=== PATIENT | female | born 1990 | race Caucasian/White ===

== ENCOUNTER 2025-02-18 19:55 | Emergency (ER) | payer SELFPAY ==
[2025-02-18 19:59] VITALS: BP 121/68; PULSE 83; RESP 20; TEMP 36.8; O2SAT 100
[2025-02-18 20:37] VITALS: BP 121/87; PULSE 78; PULSE 79; RESP 18; O2SAT 100; O2SAT 98
[2025-02-18 21:50] VITALS: BP 142/82
--- NOTE | 2025-02-18 21:59 | ECG_ITS ---
Test Date: 2025-02-18 22:13:43 Measurements Intervals [place] Rate: 76 P: 19 OK: 126 QRS: 36 QRSD: 90 T: -4 QT: 376 QTc: 423 Interpretive Statements SINUS RHYTHM NONSPECIFIC T-WAVE ABNORMALITY ABNORMAL ECG No previous ECG available for comparison Electronically Signed On 02-19-2025 06:51:34 CDT by Kyle Ansari M.D.
--- NOTE | 2025-02-18 22:15 | PC.NURSE ---
hearat tones were found in the lower right quadrant at 157.
--- NOTE | 2025-02-18 22:25 | ED_ITS ---
HPI - General Adult General Chief complaint: Unspecified Stated complaint: 14 wks preg-shocked with 120V, wants checked Time Seen by Provider: 02/18/25 22:22 History of Present Illness HPI narrative: This is a 34-year-old female presenting ED with chief complaint like fusion. Her dog chewed through a wire that were attached to some tach of lytes outside. She pressure wire a minor shock to her index finger on the left hand. She is very concerned because she has a high risk and after the shock she some chest tightness heaviness. She then called ambulance to be brought to the hospital. Symptoms have since resolved and she is now resting comfortably. She does not have any palpitations or loss of consciousness. She does not have any exit wounds or residual pain. Related Data Home Medications ?Medication ?Instructions ?Recorded ?Confirmed ?Last Taken ?Type aspirin .ROUTE 02/18/25 Unknown History labetalol 200 mg tablet 200 mg PO Q12H 02/18/25 02/18/25 Unknown History Allergies Allergy/AdvReac Type Severity Reaction Status Date / Time No Known Allergies Allergy Verified 02/18/25 20:42 Exam Narrative: APPEARANCE: No apparent distress. Head: atraumatic. EYES: EOMI, NOSE: Atraumatic NECK: Trachea midline RESPIRATORY: No increased rate of breathing CTAB CARDIOVASCULAR: RRR, no peripheral edema ABDOMINAL: Non-distended soft nontender MUSCULOSKELETAl: No obvious deformities NEURO: Alert. Moving 4/4 extremities SKIN:: Focal exam electrocution side revealed no superficial injury. No signs of exit wounds anywhere body. PSYCHIATRIC: Normal affect Course Vital Signs Vital signs: Vital Signs Temperature 98.2 F 02/18/25 19:59 Pulse Rate 83 02/18/25 19:59 Respiratory Rate 20 02/18/25 19:59 Blood Pressure 121/68 02/18/25 19:59 Pulse Oximetry 100 02/18/25 19:59 Oxygen Delivery Room Air 02/18/25 19:59 Temperature 98.2 F 02/18/25 19:59 Pulse Rate 78 02/18/25 20:37 Respiratory Rate 18 02/18/25 20:37 Blood Pressure 142/82 H 02/18/25 21:50 Pulse Oximetry 98 02/18/25 20:37 Oxygen Delivery Room Air 02/18/25 19:59 Medical Decision Making MDM Narrative Medical decision making narrative: -Course: 34-year-old female presenting after a minor electrocution. EKG is normal. heart tones are normal. Patient is asymptomatic. Patient was reassured and discharged with OBGYN follow-up Vital Signs Vital Signs: Vital Signs Temperature 98.2 F 02/18/25 19:59 Pulse Rate 83 02/18/25 19:59 Respiratory Rate 20 02/18/25 19:59 Blood Pressure 121/68 02/18/25 19:59 Pulse Oximetry 100 02/18/25 19:59 Oxygen Delivery Room Air 02/18/25 19:59 Temperature 98.2 F 02/18/25 19:59 Pulse Rate 78 02/18/25 20:37 Respiratory Rate 18 02/18/25 20:37 Blood Pressure 142/82 H 02/18/25 21:50 Pulse Oximetry 98 02/18/25 20:37 Oxygen Delivery Room Air 02/18/25 19:59 Discharge Plan Discharge Clinical Impression: Electrocution Patient Disposition: Home, Self-Care Condition: Stable Instructions: Antibiotic Form, Electrical [place] in Adults (ED) Additional Instructions: You were seen in emergency department after a minor shock. Your EKG was reassuring. Please follow-up with your OBGYN for further management. If you develop any new or worsening symptoms return to the ED. Patient Language: Belarusian Prescriptions: No Action aspirin [Adult Low Dose Aspirin] .ROUTE labetalol 200 mg tablet 200 mg PO Q12H Follow-up/Referrals: PHYSICIAN NOT ON STAFF,NONSTAFF [Non-Staff] -
--- OUTSIDE RECORDS SUMMARY | 2025-02-18 23:06 | XMS_ITS | Clinical Summary ---
Author Organization [facility] [place] Address [address] [place] [address] Care Team Providers Care Burlap Bag Sewer Name Role Phone Amparo Reina NP Primary Care Provider [phone] Allergies No known active allergies Medications buPROPion XL (WELLBUTRIN XL) 150 mg 24 hr tablet Take 1 tablet (150 mg total) by mouth every morning 90 tablet 4 07/12/20 24 025 Active labetaloL (NORMODYNE,TRANDAT E) 200 mg tablet Take 1 tablet (200 mg total) by mouth 2 (two) times a day 180 tablet 3 08/10/[address] (VOLTAREN) 75 mg EC tablet Take 1 tablet (75 mg total) by mouth 2 (two) times a day Take with food 60 tablet 08/16/20 24 Active Additional Information Patient not taking.Reported on 12/21/2024 ondansetron ODT (ZOFRAN-ODT) 4 mg disintegrating tabletIndications: Nausea Take 1 tablet (4 mg total) by mouth every 6 (six) hours as needed for nausea or vomiting 10 tablet 11/12/20 24 Active Additional Information Patient not taking.Reported on 12/21/2024 phentermine 37.5 mg capsule Take 1 capsule (37.5 mg total) by mouth every morning 30 capsule 2 11/09/20 24 025 Additional Information Patient not taking.Reported on 12/21/2024 Active Problems Problem Noted Date Diagnosed Date Lumbar pain 11/13/2024 Assessment & Plan (11/13/2024 7:37 AM STRIPER SPRAY GUN): Will start with x-ray of lumbar spine. Referral to physical therapy with added diagnosis of lumbar pain. Contusion of right thumb without damage to nail 11/13/2024 Assessment & Plan (11/13/2024 7:37 AM STRIPER SPRAY GUN): X-ray right thumb Right wrist pain 07/14/2024 Assessment & Plan (07/14/2024 8:53 AM CDT): Will order x-ray. Referral to sports Medicine Chronic right shoulder pain 07/14/2024 Assessment & Plan (07/14/2024 8:53 AM CDT): Will order x-ray. Referral to sports Medicine Hypertension, essential 12/16/2023 Assessment & Plan (11/09/2024 4:23 PM STRIPER SPRAY GUN): Blood pressure remains controlled on labetalol 200mg bid. Will continue current medications. Assessment & Plan (08/10/2024 4:02 PM CDT): Refilled labetalol, will continue with the plan for another child in the future. Assessment & Plan (08/10/2024 3:48 PM CDT): Will continue on labetalol. I do not think it is causing weight gain. She has not ruled out another Assessment & Plan (12/16/2023 11:55 AM [employer]IPER SPRAY GUN): Stable/ Improved. Blood pressure is adequately controlled on current medication. Will continue labetalol 200 mg b.i.d.. Blood pressure is well controlled on that so will continue. We will not make any medication changes today. Will have her follow-up in 6 months for continued monitoring and management Chronic left shoulder pain 12/16/2023 Assessment & Plan (12/16/2023 11:56 AM STR[employer]ER SPRAY GUN): Intermittent pain. Will refer to sports Medicine for evaluation H/O bilateral breast implants 12/16/2023 Assessment & Plan (12/16/2023 11:56 AM STRIPER SPRAY GUN): Has been told she needs 10 year MRI. Will refer to plastics for evaluation. Class 1 obesity due to exces s calories with serious comorbidity and body mass index (BMI) of 31.0 to 31.9 in adult 12/16/2023 Assessment & Plan (11/13/2024 7:35 AM STRIPER SPRAY GUN): We prescribed Phentermine continuation today. This medication may cause anxiety, dizziness, jitteriness, or insomnia. Pt has been tolerating it well and wants to continue medication in conjunction with diet and exercise plan. She is aware it could cause dependence if abused. She is to take it early in the day. Blood pressure has been monitored and is within normal limits. She is aware not to share medication with anyone else or combine with alcohol. I asked her to f/u in 3 months Assessment & Plan (08/10/2024 9:41 PM CDT): Lost 7lbs We prescribed Phentermine continuation today. This medication may cause anxiety, dizziness, jitteriness, or insomnia. Pt has been tolerating it well and wants to continue medication in conjunction with diet and exercise plan. She is aware it could cause dependence if abused. She is to take it early in the day. Blood pressure has been monitored and is within normal limits. She is aware not to share medication with anyone else or combine with alcohol. I asked her to f/u in 3 months Assessment & Plan (07/14/2024 8:53 AM CDT): I discussed the risks and benefits of starting phentermine for weight loss. I discussed the short-term use of 3-4 months of phentermine with patient. I discussed this is an aide to use in conjunction with diet changes and exercise. I discussed possible side effects. I will have patient follow-up in 1 month for recheck on blood pressure and weight patient was agreeable and voiced understanding of plan of care and follow-up Assessment & Plan (12/16/2023 11:57 AM STRIPER SPRAY GUN): Had some improvement with Contrave but then has been off of it for 2 months. She paid delcid for it. Discussed trying it again. Will start Contrave as directed. Will have her follow-up in 2 months for a weight check. If she has not having any improvement with diet and exercise and Contrave I told her we could discuss phentermine. We would have to monitor her heart rate and blood pressure more with phentermine. Patient voiced understanding of plan of care and follow-up Recurrent major depression 12/14/2023 Overview (07/12/2024): Sertraline - did not like it Assessment & Plan (11/09/2024 4:24 PM STRIPER SPRAY GUN): Having aches and pains - sometimes has difficulty sleeping. Has noticed a slight increase in anxiety with change to wellbutrin xl. Thinks she is doing okay. Assessment & Plan (08/10/2024 4:01 PM CDT): Doing well with the change to Wellbutrin and will continue. Assessment & Plan (07/12/2024 4:19 PM CDT): Concerned about weight gain with lexapro - will try changing to wellbutrin xl 150mg once daily Assessment & Plan (12/16/2023 11:58 AM STRIPER SPRAY GUN): Stable. Doing well with Lexapro 10 mg once daily. Will continue current medication have her follow-up in 6 months or as needed in interim if any problems or concerns S/P LASIK (laser assisted in situ keratomileusis ) 06/12/2023 Assessment & Plan (06/15/2023 4:22 PM CDT): Normal LASIK Good Vision Moxi/Pred QID unitl 7 days PO Art tears 2-4 times a day or PRN Return in [address] Valdovinos Assessment & Plan (06/12/2023 8:24 AM CDT): One day PO LASIK OU Normal flaps Good Vision Continue Moxifloxacin/Prednisilone Acetate 1% QID Continue Artificial Tears QID Return in 3-5 days Discussed post-operative activities Preeclampsia 08/25/2022 Resolved Problems Problem Noted Date Diagnosed Date Resolved Date Myopia of both eyes with astigmatism 05/31/2023 06/12/2023 Assessment & Plan (06/08/2023 4:18 PM CDT): Return for dilation and cycloplegic refraction before LASIK Surgery Rechecked manifest and cycloplegic refraction Reviewed LASIK risks Patient has no further questions LASIK OU +0.25 Goal OU Co-manage with Dr. Aruna Valdovinos to send last eye exam Post-ops with Dr. Valdovinos Assessment & Plan (05/31/2023 11:15 AM CDT): Referral from Dr. Valdovinos for LASIK surgery [employer] Good ocular health LASIK OU with femtosecond laser flap creation Discussed risks of LASIK surgery. Discussed risk of dryness, glare and halo and flap complications. Discussed risk of enhancement surgery and no guarantee of 20/20 vision. Discussed risk of keratectasia. Discussed presbyopia and need for reading glasses. I gave patient ample time to ask questions and reviewed all concerns. LASIK OU Co-manage with Dr. Valdovinos [place] Goal OU Patient requested to have eyes dilated at Dr. Valdovinos's office before surgery Encounters Date Type Department Care Team Description 12/21/2024 2:30 PM STRIPER SPRAY GUN Office Visit [facility] at [address] [address] Marizol Alfonso PA Acute bacterial conjunctivitis of right eye (Primary Dx) 12/07/2024 Telephone [facility] at [address] [address] Amparo Reina NP 11/27/2024 Telephone [facility] at [address] [address] Amparo Reina NP Xray results 11/23/2024 3:30 PM [employer] G[employer] Ancillary Procedure [facility] at [address] [address] Lumbar pain 11/23/2024 3:15 PM [employer]ER SPR[employer] Ancillary Procedure [facility] at [address] [address] Contusion of right thumb without damage to nail, initial encounter from Last 3 Months Immunizations Immunization Administration Dates Next Due DTaP 07/11/1996, 3,02/03/1992,10/28,1991 Hep B Vaccine 09/06/2017 Hep B, Adolescent or Pediatric 03/01/2001,1999,08/24/2000 HiB 09/28/1992, 2,1991,08/19 Hib (HbO) 09/28/1992, 2,1991,08/19 Influenza, Quadrivalent, Diandra l Culture-based MDCK, Preservative Free, Antibiotic Free, Intramuscular 09/01/2023,08/14/2022,08/04/2017 Influenza, Quadrivalent, Spl it, Preservative Free, Intramuscular 07/27/2018 Influenza, Trivalent, Cell Culture-based MDCK, Preservative Free, Antibiotic Free, Intramuscular 08/12/2024,08/04/2017 Influenza, Trivalent, IM (MDV) 08/18/2021 Influenza, Unspecified 08/10/2024(Deferr ed: Patient Refused),09/01/2023,07/27/2018 MMR 07/11/1996,09/28/1992 OPV 07/11/1996, 3,1991,08/19 OPV, Unspecified 07/11/1996, 3,1991,08/19 PPD TEST 06/13/2024 Tdap 08/26/2022 Surgical History Surgery Date Site/Laterality Comments WISDOM TOOTH EXTRACTION LIPOMA RESECTION BREAST RECONSTRUCTION LASIK Medical History Medical History Date Comments Hypertension Family History Medical History Relation Name Comments Arthritis Father Hyperlipidemia Father Anxiety disorder Mother Basal cell carcinoma Mother Depression Mother Hypertension Mother Macular degeneration Mother Arthritis Other Relation Name Status Comments Father Alive Half-Sister Alive Mother Other Social History Tobacco Use Types Packs/Day Years Used Date Smoking Tobacco: Never Smokeless Tobacco: Never Tobacco Cessation:Counseling Given: Not Answered PHQ-2 Answer Date Recorded PHQ-2 Total Score (If total score is 3 or more points, staff should administer the PHQ-9) 0 08/10/2024 Comments Unknown Sex and Gender Information Value Date Recorded Sex Assigned at Not on file Legal Sex Female 9:59 AM STRIPER SPRAY G[employer] Gender Identity Not on file Sexual Orientation Not on file Obstetrics History Last Filed Vital Signs Vital Sign Reading Time Taken Comments Blood Pressure 116/68 12/21/2024 2:21 PM [employer]ER [employer]AY G[employer] Pulse 87 12/21/2024 2:21 PM [employer]ER [employer] G[employer] Temperature 36.7 C (98.1 F) 12/21/2024 2:21 PM [employer]ER [employer]AY GUN Respiratory Rate 24 12/21/2024 2:21 PM STRIPER SPRAY GUN Oxygen Saturation 98% 12/21/2024 2:21 PM STRIPER SPRAY GUN Inhaled Oxygen Concentration - - Weight 83.9 kg (185 lb) 11/12/2024 11:51 AM STRIPER SPRAY GUN Height 165.1 cm (5' 5 ) 11/12/2024 11:51 AM [employer]IPER SPRAY GUN Body Mass Index 30.79 11/12/2024 11:51 AM STRIPER SPRAY GUN Plan of Treatment Health Maintenance Due Date Last Done Comments Cervical Cancer Screening 1991 Hepatitis C Screening 1991 Varicella Vaccines (1 of 2 - 13+ 2-dose series) 2004 Regular Well Visit/Exam 18-64 2009 Depression Screening 08/10/2025 08/10/2024, 12/14/19 24 DTaP/Tdap/Td Vaccine (7 - Td or Tdap) 08/26/2032 08/26/2022, 07/11/1996, 01/06/1993, Additional history exists Hepatitis B Screening Completed 09/06/2017 , 03/01/2001, 10/05/2000, Additional history exists Covid-19 Vaccine Completed 08/12/2024, 09/2023, 09/01/2022, Additional history exists Influenza Vaccine Completed 08/12/2024, , 09/01/2023, Additional history exists HPV Vaccines Aged Out No longer eligi ble based on patient's age to complete this topic Pneumococcal vaccine <65 Aged Out No longer eligible based on patient's age to complete this topic Procedures Procedure Name Priority Date/Time Associated Diagnosis Comments XR FINGER THUMB RIGHT Schedule Routine, Read Routine (OP Routine) 11/23/2024 3:09 PM STRIPER SPRAY G[employer] Contusion of right thumb without damage to nail, initial encounter XR SPINE LUMBAR 2 OR 3 VIEWS Schedule Routine, Read Routine (OP Routine) 11/23/2024 3:09 PM [employer]IPER SPRAY G[employer] Lumbar pain from Last 3 Months Results * XR Finger Thumb Right Minimum 2 Views (11/23/2024 3:09 PM STRIPER SPRAY GUN) Anatomical Region Laterality Modality Upper Extremities, Hand, Fingers Right Digital Radiography 11/24/2024 5:07 PM [employer]AY G[employer] Narrative 11/24/2024 5:10 PM [employer]IPER SPRAY G[employer] EXAM DESCRIPTION: XR FINGER THUMB RIGHT MINIMUM 2 VIEWS; XR SPINE LUMBAR 2 OR 3 VIEWS REASON FOR STUDY: right thumb injury Pt complains of soft tissue pain between right thumb and 2nd metatarsal after smashing it a couple of weeks ago ; low back pain Pt complains of chronic lower back pain. No recent injury. No prior surgery to the lower spine. FINDINGS: Two views lumbar spine and three views right thumb submitted without comparison. Right thumb: No acute fractures are identified. Ulnar negative variance is present. The joint spaces are normal. Lumbar spine: No acute fractures are identified. There is mild retrolisthesis of L5 on S1. The intervertebral disc space heights are normal. IMPRESSION: No acute fracture. Mild retrolisthesis of L5 on S1. THIS IS AN ELECTRONICALLY VERIFIED FINAL REPORT 11/24/2024 5:10 PM - Electronically signed by Toney Kitchen M.D. T: Report ID: [id number] Reading Location: [id number] Procedure Note Toney Kitchen MD - 11/24/2024 EXAM DESCRIPTION: XR FINGER THUMB RIGHT MINIMUM 2 VIEWS; XR SPINE LUMBAR 2 OR 3 VIEWS REASON FOR STUDY: right thumb injury Pt complains of soft tissue pain between right thumb and 2nd metatarsalafter smashing it a couple of weeks ago ; low back pain Pt complains of chronic lower back pain. No recent injury. No priorsurgery to the lower spine. FINDINGS: Two views lumbar spine and three views right thumb submittedwithout comparison. Right thumb: No acute fractures are identified. Ulnar negative variance is present.The joint spaces are normal. Lumbar spine: No acute fractures are identified. There is mild retrolisthesis of L5 onS1. The intervertebral disc space heights are normal. IMPRESSION: No acute fracture. Mild retrolisthesis of L5 on S1. THIS IS AN ELECTRONICALLY VERIFIED FINAL REPORT 11/24/2024 5:10 PM - Electronically signed by Toney Kitchen M.D. T: Report ID: [id number] Reading Location: [place] [address] Amparo Reina WHITE [employer] SUPERVISOR IMG XR PROCEDURES Final Resul t * XR Spine Lumbar 2 or 3 Views (11/23/2024 3:09 PM STRIPER SPRAY G[employer]) Anatomical Region Laterality Modality Spine N/A Digital Radiogra phy 11/24/2024 5:07 PM [employer] Narrative 11/24/2024 5:10 PM [employer]IPER SPRAY [employer] EXAM DESCRIPTION: XR FINGER THUMB RIGHT MINIMUM 2 VIEWS; XR SPINE LUMBAR 2 OR 3 VIEWS REASON FOR STUDY: right thumb injury Pt complains of soft tissue pain between right thumb and 2nd metatarsal after smashing it a couple of weeks ago ; low back pain Pt complains of chronic lower back pain. No recent injury. No prior surgery to the lower spine. FINDINGS: Two views lumbar spine and three views right thumb submitted without comparison. Right thumb: No acute fractures are identified. Ulnar negative variance is present. The joint spaces are normal. Lumbar spine: No acute fractures are identified. There is mild retrolisthesis of L5 on S1. The intervertebral disc space heights are normal. IMPRESSION: No acute fracture. Mild retrolisthesis of L5 on S1. THIS IS AN ELECTRONICALLY VERIFIED FINAL REPORT 11/24/2024 5:10 PM - Electronically signed by Toney Kitchen M.D. T: Report ID: [id number] Reading Location: [id number] Procedure Note Toney Kitchen MD - 11/24/2024 EXAM DESCRIPTION: XR FINGER THUMB RIGHT MINIMUM 2 VIEWS; XR SPINE LUMBAR 2 OR 3 VIEWS REASON FOR STUDY: right thumb injury Pt complains of soft tissue pain between right thumb and 2nd metatarsalafter smashing it a couple of weeks ago ; low back pain Pt complains of chronic lower back pain. No recent injury. No priorsurgery to the lower spine. FINDINGS: Two views lumbar spine and three views right thumb submittedwithout comparison. Right thumb: No acute fractures are identified. Ulnar negative variance is present.The joint spaces are normal. Lumbar spine: No acute fractures are identified. There is mild retrolisthesis of L5 onS1. The intervertebral disc space heights are normal. IMPRESSION: No acute fracture. Mild retrolisthesis of L5 on S1. THIS IS AN ELECTRONICALLY VERIFIED FINAL REPORT 11/24/2024 5:10 PM - Electronically signed by Toney Kitchen M.D. T: Report ID: [id number] Reading Location: [place] [address] Amparo Reina NP IMG XR PROCEDURES Final Resul t from Last 3 Months Insurance [facility] [employer] Address: [facility] [address] [place] [address] [employer] Address: [address] [place] [address] Care Teams Burlap Bag Sewer Relationship Specialty Start Date End Date Amparo Reina NP PCP - General Family Medicine 12/14/23
--- OUTSIDE RECORDS SUMMARY | 2025-02-18 23:06 | XMS_ITS | Continuity of Care Document ---
Author Organization [facility] Address [address] [place] [address] Phone Care Team Providers Care Advertising Editor Name Role Phone Sebas Fitzpatrick PT Unavailable [...] Diagnoses Date Provider Providers Copied on Encounter [address], [place], [place], [id number], tel:[phone] [facility] No Information Amari Mullen. . Referring Provider: Amparo Reina, [address], [place], [address]. tel:[phone] [address], [place], [place], [id number], [place] tel:[phone] [place] No Information Amari Sebas. . Referring Provider: Amparo Reina, [address], [place], [address]. tel:[phone] [facility], [address] [facility], [place], [place], [id number], [place] tel:[phone] [place] No Information Amari Sebas. . Referring Provider: Earlene Castanon, [address], [place], [address]. tel:[phone] [facility], [address] [facility] [facility], [place], [place], [id number], tel:[phone] [place] No Information Amari Sebas. . Referring Provider: Earlene Castanon, [address], [place], [address]. tel:[phone] [facility], [address], [place], [place], [id number], [place] tel:[phone] [place] No Information Amari Sebas. . Referring Provider: Earlene Castanon [address], [place], [address]. tel:[phone] [facility] [address] [facility], [place], [place], [id number], [place] tel:[phone] [place] No Information Amari Sebas. . Referring Provider: Earlene Castanon [address], [place], [address]. tel:[phone] [facility], [place], [place], [id number], [place] tel:[phone] [place] No Information Amari Sebas. . Referring Provider: Earlene Castanon [address], [place], [address]. tel:[phone] [address], [place], [place], [id number], tel:[phone] [facility] No Information Amari So . Referring Provider: Earlene Castanon [address], [place], [address]. tel:[phone], [place], [place], [id number], tel:[phone] [facility] No Information Amari So . Referring Provider: Earlene Castanon [address], [place], [address]. tel:[phone], [place], [place], [id number], tel:[phone] [facility] No Information Amari So . Referring Provider: Earlene Castanon [address], [place], [address]. tel:[phone] Family History Family Member Type Diagnosis Age At Onset No Information Payers Payer name Insurance type Covered democrat ID Authormilli patrickcurtis(s) [facility] [id number] Social History Type Description Quantity Date Captured [...]
--- OUTSIDE RECORDS SUMMARY | 2025-02-18 23:06 | XMS_ITS | Clinical Summary ---
Author Organization [facility] Address [facility] [place] [address] Care Team Providers Care Continuity Director Name Role Phone Amparo Reina [facility] Primary Care Provider [phone]- [phone] Allergies No known active allergies Medications escitalopram (LEXAPRO) 10 MG tablet Take 10 mg by mouth daily. Active labetalol (NORMODYNE) 200 MG tablet Take 200 mg by mouth 2 (two) times daily. Active Multiple Vitamin (MULTIVITAMIN ADULT) Tab Active Active Problems Problem Noted Date Diagnosed Date Preeclampsia (HHS/HCC) 08/25/2022 Comments Yes Encounters Date Type Department Care Team Description 01/16/2025 1:52 AM CRATE REPAIRER - 01/16/2025 5:33 AM [facility] Emergency [facility] Emergency Room [address] [place] [address] Donny Bingham MD Vaginal Bleeding Discharge Disposition: Home or Self Care (Routine Discharge) 01/16/2025 Travel 12/27/2024 1:00 PM CRATE REPAIRER - 12/27/2024 11:59 PM [facility] Hospital Encounter [facility] Laboratory [address] [place] [address] None, Provider, Ángela Oliver CNM Discharge Disposition: Home or Self Care (Routine Discharge) 12/26/2024 10:17 PM CRATE REPAIRER - 12/26/2024 11:53 PM [facility] Emergency [facility] Emergency Room [address] [place], [place] [id number] Gibson Lee MD Vaginal Bleeding Discharge Disposition: Home or Self Care (Routine Discharge) 12/26/2024 Travel 12/26/2024 Orders Only [facility] [address] [place] [address] Ángela Arambula CNM from Last 3 Months Immunizations Name Administration Dates Next Due Dtap 07/11/1996, 3,02/03/1992, 991,1991 Flucelvax 6 Months+ (Prefill ed Syringe) 08/04/2017 Hepatitis B (Generic: Adult) 09/06/2017 Hepatitis B Pediatric 03/01/2001,10/05/2000,01/2000 Hib 09/28/1992, 2,1991, 991 Influenza Adult (Generic) 07/27/2018 MMR 07/11/1996,09/28/1992 Opv 07/11/1996, 3,1991, 991 Family History Medical History Relation Comments Hyperlipidemia Father Hypertension Father borderline DM Father Heart Maternal Grandfather Heart Attack Maternal Grandfather Cancer Maternal Grandmother lung cancer Cancer Mother corticobasal syn drome Hypertension Mother Diabetes Paternal Grandfather CHF Paternal Grandmother Rheumatoid Arthritis Paternal Grandmother Anxiety Sister Relation Status Comments Father Alive Maternal Grandfather Maternal Grandmother Mother Alive Paternal Grandfather Paternal Grandmother Sister Alive Social History Tobacco Use Types Packs/Day Years Used Date Smoking Tobacco: Never Smokeless Tobacco: Never Tobacco Cessation:Counseling Given: Not Answered Alcohol Use Standard Drinks/Week Comments Not Currently 0 (1 standard drink = 0.6 oz pur e alcohol) rarely Humiliation, Afraid, Rape, and Kick questionnair e Answer Date Recorded Within the last year, have y ou been afraid of your partner or ex-partner? No 08/25/2022 Within the last year, have y ou been humiliated or emotionally abused in other ways by your partner or ex-partner? No Within the last year, have y ou been kicked, hit, slapped, or otherwise physically hurt by your partner or ex-partner? No 08/25/2022 Within the last year, have y ou been raped or forced to have any kind of sexual activity by your partner or ex-partner? No 08/25/2022 Social Connection and Isolat ion Panel [NHANES] Answer Date Recorded In a typical week, how many times do you talk on the phone with family, friends, or neighbors? Three times a week 08/25/2022 How often do you get togethe r with friends or relatives? Twice a week 08/25/2022 How often do you attend [facility] or congregation services? More than 4 times per year 08/25/2022 Do you belong to any clubs o r organizations such as spiritism groups, unions, fraternal or athletic groups, or school groups? No 08/25/2022 How often do you attend meet ings of the clubs or organizations you belong to? Never 08/25/2022 Are you , , di vorced, , never , or living with a partner? 08/25/2022 AUDIT-C Answer Date Recorded Q1: How often do you have a drink containing alcohol? Never 08/25/2022 Q2: How many drinks containi ng alcohol do you have on a typical day when you are drinking? Patient does not drink Q3: How often do you have si x or more drinks on one occasion? Never 08/25/2022 Overall Financial Resource Strain (CARDIA) Answe r Date Recorded How hard is it for you to pa y for the very basics like food, housing, medical care, and heating? Not very hard 08/25/2022 PHQ-2 Answer Date Recorded PHQ-2 Score - If the patient scores above 3, please move on to questions 3-9 2 03/26/2021 [facility] - Occupational Stress Questionnaire Answer Date Recorded Do you feel stress - tense, restless, nervous, or anxious, or unable to sleep at night because your mind is troubled all the time - these days? To some extent 08/25/2022 Exercise Vital Sign Answer Date Recorde d On average, how many days pe r week do you engage in moderate to strenuous exercise (like a brisk walk)? 4 days 08/25/2022 On average, how many minutes do you engage in exercise at this level? 120 min 08/25/2022 Hunger Vital Sign Answer Date Recorded Within the past 12 months, y ou worried that your food would run out before you got the money to buy more. Sometimes true Within the past 12 months, t he food you bought just didn't last and you didn't have money to get more. Sometimes true 02/2022 PRAPARE - Transportation Answer Date Re corded In the past 12 months, has l ack of transportation kept you from medical appointments or from getting medications? No 02/2022 In the past 12 months, has l ack of transportation kept you from meetings, work, or from getting things needed for daily living? No 08/25/2022 Housing Stability Vital Sign Answer Andrei e Recorded In the last 12 months, was t here a time when you were not able to pay the mortgage or rent on time? Yes 08/25/2022 In the last 12 months, how many places have you lived? 1 08/25/2022 In the last 12 months, was t here a time when you did not have a steady place to sleep or slept in a residential (including now)? No 08/25/2022 Comments Yes Sex and Gender Information Value Date Recorded Sex Assigned at Female 12/26/2024 9:46 PM CRATE REPAIRER Legal Sex Female 8:58 PM CDT Gender Identity Not on file Sexual Orientation Not on file Last Filed Vital Signs Vital Sign Reading Time Taken Comments Blood Pressure 134/82 01/16/2025 2:02 AM CRATE REPAIRER Pulse 87 01/16/2025 2:02 AM CRATE REPAIRER Temperature 36.5 C (97.7 F) 01/16/2025 2:02 AM CRATE REPAIRER Respiratory Rate 18 01/16/2025 2:02 AM CRATE REPAIRER Oxygen Saturation 100% 01/16/2025 2:02 AM CRATE REPAIRER Inhaled Oxygen Concentration - - Weight 82.6 kg (182 lb 1.6 oz) 01/16/2025 2:02 A M CRATE REPAIRER Height 165.1 cm (5' 5 ) 01/16/2025 2:02 AM CRATE REPAIRER Body Mass Index 30.3 01/16/2025 2:02 AM CRATE REPAIRER Plan of Treatment Health Maintenance Due Date Last Done Comments Cervical Cancer Screening Pap Smear (Age 30 to 64) Every 3 Years 1991 Annual Physical 1994 Hepatitis C 2009 Cervical Cancer Screening Pap with HPV Testing (Age 30 to 64) Every 5 Years 2021 Cervical Cancer Screening with HPV 2021 COVID-19 Vaccine (2023- season) 2024 DTaP, Tdap and Td Vaccines (7 - Td or Tdap) 08/26/2032 08/26/2022, 07/11/1996, 01/06/1993, Additional history exists RSV Immunization or 60+ Years (1 - 1-dose 75+ series) 2066 Hepatitis B Vaccines Completed 09/06/2017, 03/01/2001, 10/05/2000, Additional history exists HPV Vaccines Aged Out No longer eligi ble based on patient's age to complete this topic Meningococcal B Vaccine Aged Out No l onger eligible based on patient's age to complete this topic Meningococcal Vaccine Aged Out No veronica richard eligible based on patient's age to complete this topic Pneumococcal Vaccine: Pediatrics (0 to 5 Years) and At-Risk Patients (6 to 64 Years) Aged Out No longer eligible based on patient's age to complete this topic RSV Immunizations Under 20 Months Aged Out No longer eligible based on patient's age to complete this topic Procedures Procedure Name Priority Date/Time Associated Diagnosis Comments US OB <14WKS TA STAT 01/16/2025 5:08 AM CRATE REPAIRER HCG QUANT (SERUM)-CHORIONIC GONADOTROPIN STAT 01/16/2025 2:00 AM CRATE REPAIRER HC URINALYSIS AUTO W/O MICRO STAT 01/16/2025 2:00 AM CRATE REPAIRER COMPREHENSIVE METABOLIC PANEL STAT 01/16/2025 2:00 AM CRATE REPAIRER CBC W/DIFF AUTOMATED STAT 01/16/2025 2:00 AM CRATE REPAIRER HCG QUANT (SERUM)-CHORIONIC GONADOTROPIN Routine 12/27/2024 1:05 PM CRATE REPAIRER Absence of menstruation TEST URINE STAT 12/26/2024 10:30 PM CRATE REPAIRER URINALYSIS, AUTO, COMPLETE STAT 12/26/2024 10:30 PM CRATE REPAIRER HCG QUANT (SERUM)-CHORIONIC GONADOTROPIN STAT 12/26/2024 10:30 PM CRATE REPAIRER COMPREHENSIVE METABOLIC PANEL STAT 12/26/2024 10:30 PM CRATE REPAIRER CBC W/DIFF AUTOMATED STAT 12/26/2024 10:30 PM CRATE REPAIRER from Last 3 Months Results * US OB <14WKS TA (01/16/2025 5:08 AM CRATE REPAIRER) Anatomical Region Laterality Modality Abdomen Ultrasound 01/16/2025 5:13 AM CRATE REPAIRER Impressions 01/16/2025 5:18 AM CRATE REPAIRER IMPRESSION: 1. Single viable intrauterine with heart rate of 164 bpm. 2. Fetus is estimated as 9 weeks 2 days with HERBER 08/19/2025 +/- 2 weeks. This correlates fairly well with dates obtained from the LMP. 3. No subchorionic hemorrhage. Unremarkable ovaries. No free fluid in the cul-de-sac. Referred By: Interpreted By: Marie Huynh MD, 01/16/2025 5:13 AM Narrative 01/16/2025 5:18 [place] [address] EXAM: US OB <14WKS TA CLINICAL INFORMATION: 9 weeks estimated gestational age, vaginal bleeding. LMP 11/09/2024 with fetus weight is 9 weeks 5 days with HERBER 08/16/2025.. Beta hCG level of alexx and 41,000 241 on 01/16/2025. G4, P3. TECHNIQUE: Multiple transabdominal sonographic images of the OB pelvis were obtained. COMPARISON: None pertaining to this . FINDINGS: ? The uterus measures 12.5 x 6.8 x 9 cm with myeloma 398.2 mL. There is a single viable intrauterine with heart rate of 164 bpm. Bedford-rump measurements 2.59 cm corresponding to a 9 week 2 day with HERBER 08/19/2025 +/- 2 weeks, which correlates well with dates obtained from the LMP. No subchorionic hemorrhage is seen. Yolk sac is seen. Subjectively normal quantity of amniotic fluid is seen. ? The right ovary measures 2.7 x 1.8 1.8 cm with volume of 4.7 mL. The left ovary measures 4.3 x 1.9 x 2.7 cm with volume of 11.3 mL. Appropriate color and Doppler blood flow is seen in the ovaries with no evidence of ovarian torsion. Small subcentimeter physiologic follicles are seen in both ovaries with no suspicious ovarian or adnexal mass. No free fluid is seen in the cul-de-sac. ? Procedure Note Marie Huynh MD - 01/16/2025 [facility] [address] [place] [address] EXAM: US OB <14WKS TA CLINICAL INFORMATION: 9 weeks estimated gestational age, vaginalbleeding. LMP 11/09/2024 with fetus weight is 9 weeks 5 days with EDD08/16/2025.. Beta hCG level of alexx and 41,000 241 on 01/16/2025. G4,P3. TECHNIQUE: Multiple transabdominal sonographic images of the OB pelviswere obtained. COMPARISON: None pertaining to this . FINDINGS: ? The uterus measures 12.5 x 6.8 x 9 cm with myeloma 398.2 mL. There is asingle viable intrauterine with heart rate of 164 bpm.Bedford-rump measurements 2.59 cm corresponding to a 9 week 2 day pregnancywith HERBER 08/19/2025 +/- 2 weeks, which correlates well with dates obtainedfrom the LMP. No subchorionic hemorrhage is seen. Yolk sac is seen.Subjectively normal quantity of amniotic fluid is seen. ? The right ovary measures 2.7 x 1.8 1.8 cm with volume of 4.7 mL. The leftovary measures 4.3 x 1.9 x 2.7 cm with volume of 11.3 mL. Appropriatecolor and Doppler blood flow is seen in the ovaries with no evidence ofovarian torsion. Small subcentimeter physiologic follicles are seen inboth ovaries with no suspicious ovarian or adnexal mass. No free fluid isseen in the cul-de-sac. ? IMPRESSION: 1. Single viable intrauterine with heart rate of 164bpm. 2. Fetus is estimated as 9 weeks 2 days with HERBER 08/19/2025 +/- 2 weeks.This correlates fairly well with dates obtained from the LMP. 3. No subchorionic hemorrhage. Unremarkable ovaries. No free fluid inthe cul-de-sac. Referred By: Interpreted By: Marie Huynh MD, 01/16/2025 5:13 AM us Donny Bingham MD ULTRASOUND Final Resu lt * (ABNORMAL) URINALYSIS (01/16/2025 2:00 AM CRATE REPAIRER) COLOR (U) LIGHT YELLOW 01/16/2025 3:03 AM [facility] TRANSPARENCY CLEAR 01/16/2025 3:03 AM [facility] SPECIFIC GRAVITY (U) 1.015 1.002 - 1.030 01/16/2025 3:03 AM [facility] U PH 6.0 4.5 - 8.0 01/16/2025 3:03 AM [facility] LEUKOCYTES (U) NEGATIVE NEGATIVE 01/16/2025 3:03 AM [facility] NITRITES NEGATIVE NEGATIVE 01/16/2025 3:03 AM [facility] PROTEIN RANDOM (U) 1+(A) NEGATIVE 01/16/2025 3:03 AM [facility] GLUCOSE (U) NEGATIVE NEGATIVE 01/16/2025 3:03 AM [facility] KETONES MG/DL (U) NEGATIVE NEGATIVE 01/16/2025 3:03 AM [facility] UROBILINOGEN NORMAL NORMAL EU/DL 01/16/2025 3:03 AM [facility] BILIRUBIN (U) NEGATIVE NEGATIVE 01/16/2025 3:03 AM [facility] BLOOD (U) 4+(A) NEGATIVE 01/16/2025 3:03 AM [facility] WBC/HPF OCCASIONAL /HPF 01/16/2025 3:03 AM [facility] RBC/HPF 0-2 /HPF 01/16/2025 3:03 AM [facility] EPI/HPF 0-5 /HPF 01/16/2025 3:03 AM [facility] URINE SPECIMEN OBTAINED BY CLEAN CATCH PROCEDURE / Unknown 01/16/2025 2:00 AM CRATE REPAIRER us Donny Bingham MD URINE ORDERABLES Final Res ult [facility] [address] [place] [id number], [place] [phone] * (ABNORMAL) COMPREHENSIVE METABOLIC PANEL (01/16/2025 2:00 AM CRATE REPAIRER) Only the most recent of2 resultswithin the time period is included. GLUCOSE 89 70 - 99 MG/DL 01/16/2025 3:46 AM [facility] BUN 12 7 - 18 MG/DL 01/16/2025 3:46 AM [facility] CREATININE S/P/B 0.80 0.55 - 1.02 MG/DL 01/16/2025 3:46 AM [facility] SODIUM S/P/B 139 136 - 145 MMOL/L 01/16/2025 3:46 AM [facility] POTASSIUM S/P/B 3.6 3.5 - 5.1 MMOL/L 01/16/2025 3:46 AM [facility] CHLORIDE S/P/B 104 100 - 108 MMOL/L 01/16/2025 3:46 AM [facility] CO2 23.4 21 - 32 MMOL/L 01/16/2025 3:46 AM [facility] CALCIUM S/P/B 9.1 8.5 - 10.1 MG/DL 01/16/2025 3:46 AM [facility] BILIRUBIN TOTAL S/P/B 0.2 0.2 - 1.2 MG/DL 01/16/2025 3:46 AM [facility] Comment: THIS ASSAY IS NOT RECOMMENDED FOR PATIENTS UNDERGOING TREATMENT WITH ELTROMBOPAG DUE TO THE POTENTIAL FOR FALSELY ELEVATED RESULTS. TOTAL PROTEIN S/P/B 6.8 6.4 - 8.2 G/DL 01/16/2025 3:46 AM [facility] ALBUMIN S/P/B 3.3(L) 3.4 - 5.0 G/DL 01/16/2025 3:46 AM [facility] AST 26 15 - 37 U/L 01/16/2025 3:46 AM [facility] ALT 55 14 - 55 U/L 01/16/2025 3:46 AM [facility] ALKALINE PHOSPHATASE S/P/B 77 50 - 136 U/L 01/16/2025 3:46 AM [facility] ANION GAP 11.6 5 - 15 MMOL/L 01/16/2025 3:46 AM [facility] BUN CREATININE RATIO 15.0 6 - 26 01/16/2025 3:46 AM [facility] A/G RATIO 0.9(L) 1.0 - 2.0 RATIO 01/16/2025 3:46 AM [facility] GFR ESTIMATE >90 >90 ML/MIN/1.7 3 M2 01/16/2025 3:46 AM [facility] Comment: NOTE: eGFR is not calculated for patients <18 years of age or gender unknown. This is an estimated GFR calculation using the new CKD EPI creatinine equation without race and so does not require a correction factor for race. This estimated GFR should not be used for calculating drug doses. 01/16/2025 2:00 AM CRATE REPAIRER us Donny Bingham MD LABORATORY Final Resu lt Performing Organization Address [facility] Co de Phone Number [facility] [address] [place] [address], [place] [phone] * Quantitative HCG (01/16/2025 2:00 AM CRATE REPAIRER) Only the most recent of3 resultswithin the time period is included. HCG QUANTITATIVE 141,241 MIU/ML 01/16/20 3:51 AM CRATE REPAIRER [facility] Comment: WEEKS OF REFERENCE RANGES NON- FEMALE 0-6 0.2 - 1 5 - 50 1 - 2 50 - 500 2 - 3 100 - 5000 3 - 4 500 - 10,000 4 - 5 1000 - 50,000 5 - 6 10,000 - 100,000 6 - 8 15,000 - 200,000 2 - 3 MONTHS 10,000 - 100,000 01/16/2025 2:00 AM CRATE REPAIRER Donny Bnigham MD LABORATORY Final Resu lt Performing Organization Address [facility] Co de Phone Number [facility] [address] [place] [address], [place] [phone] * (ABNORMAL) CBC W/DIFF AUTOMATED (01/16/2025 2:00 AM CRATE REPAIRER) Only the most recent of2 resultswithin the time period is included. WBC 9.72 4.50 - 11.00 x10'3/uL 01/16/2025 2:19 AM CRATE REPAIRER [facility] RBC 4.04(L) 4.20 - 5.40 x10'6/uL 01/16/2025 2:19 AM [facility] HGB 12.1 12.0 - 16.0 G/DL 01/16/2025 2:19 AM [facility] HCT 35.9(L) 38.0 - 48.0 % 01/16/2025 2:19 AM [facility] MCV 88.9 81.0 - 99.0 FL 01/16/2025 2:19 AM [facility] MCH 30.0 27.0 - 31.0 PG 01/16/2025 2:19 AM [facility] MCHC 33.7 32.0 - 36.0 G/DL 01/16/2025 2:19 AM [facility] RDW 13.5 11.5 - 14.5 % 01/16/2025 2:19 AM [facility] PLT 207 130 - 400 x10'3/uL 01/16/2025 2:19 AM [facility] MPV 10.5 9.3 - 12.2 FL 01/16/2025 2:19 AM [facility] CBC COMMENT AUTOMATED RBC MORPHOLOGY AND PLATELET EVALUATION NORMAL 01/16/2025 2:19 AM [facility] NEUTROPHILS % 70.9 % 01/16/2025 2:19 AM [facility] LYMPHOCYTES % 18.7 % 01/16/2025 2:19 AM [facility] MONOCYTES % 6.2 % 01/16/2025 2:19 AM [facility] EOSINOPHILS 3.5 % 01/16/2025 2:19 AM [facility] BASOPHILS 0.4 % 01/16/2025 2:19 AM [facility] IMMATURE GRANS % 0.3 % 01/16/20 2:19 AM [facility] NRBC % 0.0 % 01/16/2025 2:19 AM [facility] ABS. NEUTROPHILS TOTAL 6.89 1.80 - 7.70 x10'3/uL 01/16/2025 2:19 AM [facility] ABS. LYMPHOCYTES 1.82 1.00 - 4.80 x10'3/uL 01/16/2025 2:19 AM [facility] ABS. MONOCYTES 0.60 0.24 - 0.86 x10'3/uL 01/16/2025 2:19 AM [facility] ABS. EOSINOPHILS 0.34 0.04 - 0.36 x10'3/uL 01/16/2025 2:19 AM [facility] ABS. BASOPHILS 0.04 0.01 - 0.08 x10'3/uL 01/16/2025 2:19 AM [facility] ABS. IMMATURE GRANULOCYTES 0.03 0.00 - 0.49 x10'3/uL 01/16/2025 2:19 AM [facility] ABS. NUCLEATED RBC'S 0.00 0.00 - 0.01 x10'3/uL 01/16/2025 2:19 AM [facility] 01/16/2025 2:00 AM CRATE REPAIRER us Donny Bingham MD LABORATORY Final Resu lt [facility] [address] [place] [address], * (ABNORMAL) TEST URINE (12/26/2024 10:30 PM CRATE REPAIRER) URINE HCG TEST POSITIVE( A) NEGATIVE 12/26/2024 10:44 PM [facility] Comment: VERY DILUTE URINE SPECIMENS MAY NOT CONTAIN COMMERCIAL REPORTER LEVELS OF HCG. IF IS STILL SUSPECTED, A SERUM HCG TEST IS RECOMMENDED. URINE SPECIMEN FROM [facility]RETHRA / Unknown 12/26/2024 10:30 PM CRATE REPAIRER us Gibson Lee MD URINE ORDERABLES Final Resu lt [facility] [address] [place] [address], [place] [phone] * (ABNORMAL) URINALYSIS, AUTO, COMPLETE (12/26/2024 10:30 PM CRATE REPAIRER) COLOR (U) YELLOW 12/26/2024 10:51 PM [facility] TRANSPARENCY CLEAR 12/26/2024 10:51 PM [facility] SPECIFIC GRAVITY (U) 1.025 1.000 - 1.030 12/26/2024 10:51 PM [facility] U PH 6.0 5.0 - 9.0 12/26/2024 10:51 PM [facility] LEUKOCYTES (U) NEGATIVE NEGATIVE 12/26/2024 10:51 PM [facility] NITRITES NEGATIVE NEGATIVE 12/26/2024 10:51 PM [facility] PROTEIN RANDOM (U) NEGATIVE NEGATIVE 12/26/2024 10:51 PM [facility] GLUCOSE (U) NEGATIVE NEGATIVE 12/26/2024 10:51 PM [facility] KETONES MG/DL (U) NEGATIVE NEGATIVE 12/26/2024 10:51 PM [facility] BILIRUBIN (U) NEGATIVE NEGATIVE 12/26/2024 10:51 PM [facility] BLOOD (U) 3+(A) NEGATIVE 12/26/2024 10:51 PM CRATE REPAIRER [facility] WBC/HPF 0-5 0 - 5 /HPF 12/26/2024 10:51 PM CRATE REPAIRER [facility] RBC/HPF 0-5 0 - 5 /HPF 12/26/2024 10:51 PM CRATE REPAIRER [facility] EPI/HPF MODERATE /HPF 12/26/2024 10:51 PM CRATE REPAIRER [facility] URINE SPECIMEN OBTAINED BY CLEAN CATCH PROCEDURE / Unknown 12/26/2024 10:30 PM CRATE REPAIRER Gibson Lee MD URINE ORDERABLES Final Resu lt [facility] [address] [place] [address], from Last 3 Months Advance Directives * Full Code (Latest Code Status on File) Date Activated Date Inactivated Comments 08/25/2022 9:27 PM 08/27/2022 11:42 PM * Full Code Date Activated Date Inactivated Comments 08/25/2022 8:24 PM 08/25/2022 9:27 PM * Full Code Date Activated Date Inactivated Comments 07/17/2022 7:54 PM 07/18/2022 3:58 AM * Full Code Date Activated Date Inactivated Comments 05/31/2022 2:35 PM 05/31/2022 8:44 PM Care Teams Continuity Director Relationship Specialty Start Date End Date Amparo Reina, PROCESS CONTROL SUPERVISOR- [address] [place] [id number] PCP - General NURSE PRACTITIONER 12/26/24
--- OUTSIDE RECORDS SUMMARY | 2025-02-18 23:06 | XMS_ITS | Encounter Summary ---
Author Organization [facility] Address [address] [place] [address] Care Team Providers Care Museum Host/Hostess Name Role Phone Bettie Thrasher NP Primary Care Provider Unav ailable None, Provider Primary Care Provider Unavaila ble None, Provider Primary Care Provider Unavaila ble Nuvia Bates Primary Care Provider [phone] Amparo Reina [facility] Primary Care Provider [phone] Encounter Details Date Type Department Care Team (Late st Contact Info) Description 07/15/2021 Microfabricat Message Enc [facility] Family & Internal Medicine [address] [address] Bettie Thrasher, RIO RE: Question Social History Tobacco Use Types Packs/Day Years Used Date Smoking Tobacco: Never Smokeless Tobacco: Never Alcohol Use Standard Drinks/Week Comments Yes 0 (1 standard drink = 0.6 oz pur e alcohol) rarely AUDIT-C Answer Date Recorded Q1: How often do you have a drink containing alc ohol? Monthly or less 03/26/2021 Average Number of Drinks Not on file 021 Frequency of Binge Drinking Not on file 03/2021 PHQ-2 Answer Date Recorded PHQ-2 Score - If the patient scores above 3, please move on to questions 3-9 2 03/26/2021 Comments No Sex and Gender Information Value Date Recorded Sex Assigned at Female 12/26/2024 9:46 PM HOME HEALTH SPECIALIST Legal Sex Female 8:58 PM CDT Gender Identity Not on file Sexual Orientation Not on file COVID-19 Exposure Response Date Recorded In the last month, have you been in contact with someone who was confirmed or suspected to have Coronavirus / COVID-19? No / Unsure 07/14/2021 9:25 PM CDT documented as of this encounter Plan of Treatment Not on file documented as of this encounter Visit Diagnoses Not on filedocumented in this encounter Additional Health Concerns Infection Onset Date Last Indicated Resolved Time COVID-19 Rule Out 12/10/2021 12/10/2021 12/10/2021 11:47 AM HOME HEALTH SPECIALIST COVID-19 Rule Out 10/25/2022 10/25/2022 10/25/2022 1:56 PM HOME HEALTH SPECIALIST documented as of this encounter Care Teams Museum Host/Hostess Relationship Specialty Start Date End Date Bettie Thrasher NP PCP - General NURSE PRACTITIONER 03/26/21 12/09/21 None, Provider, PCP - General 12/10/21 12/31/21 None, Provider, PCP - General 01/28/22 08/24/22 [place] [address] [place] [address] PCP - General PHYSICIAN LEAN SIX SIGMA SENIOR SPECIALIST 08/25/22 12/25/24 Amparo Reina FNP- [address] [place] [address] PCP - General NURSE PRACTITIONER 12/26/24 documented as of this encounter
--- OUTSIDE RECORDS SUMMARY | 2025-02-18 23:06 | XMS_ITS | Encounter Summary ---
Author Organization [facility] Address [address] [place] [address] Care Team Providers Care Event Representative Name Role Phone Bettie Thrasher NP Primary Care Provider Unav ailable None, Provider Primary Care Provider Unavaila ble None, Provider Primary Care Provider Unavaila ble Nuvia Bates Primary Care Provider [phone] Amparo Reina [facility] Primary Care Provider [phone] Encounter Details Date Type Department Care Team (Late st Contact Info) Description 05/27/2021 Koalaht Message Enc [facility] Family & Internal Medicine [address] [address] Bettie Thrasher NP RE: Medication Questions Social History Tobacco Use Types Packs/Day Years [...] Sex Assigned at Female 12/26/2024 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 GRADE TEACHER COVID-19 Rule Out 10/25/2022 10/25/2022 10/25/2022 1:56 PM 8TH GRADE TEACHER documented as of this encounter Care Teams Event Representative Relationship Specialty Start Date End Date Bettie Thrasher NP PCP - General NURSE PRACTITIONER 03/26/21 12/09/21 None, ProviderMD PCP - General 12/10/21 12/31/21 None, Provider, PCP - General 01/28/22 08/24/22 [place] [address] [place] [address] PCP - General PHYSICIAN CIVIL ENGINEERING PROJECT MANAGER 08/25/22 12/25/24 Amparo Reina FNP- [address] [place] [address] PCP - General NURSE PRACTITIONER 12/26/24 documented as of this encounter
--- OUTSIDE RECORDS SUMMARY | 2025-02-18 23:06 | XMS_ITS | Encounter Summary ---
Author Organization [facility] Address [address] [place] [address] Care Team Providers Care Enroute Controller Name Role Phone Bettie Thrasher NP Primary Care Provider Unav ailable None, Provider Primary Care Provider Unavaila ble None, Provider Primary Care Provider Unavaila ble Nuvia Bates Primary Care Provider [phone] Amparo Reina [facility] Primary Care Provider [phone] Encounter Details Date Type Department Care Team (Late st Contact Info) Description 03/27/2021 [employer] Message Enc [facility] Medical Group Family & Internal Medicine [address] [address] Bettie Thrasher, RIO RE: Question [...] Sex Assigned at Female 12/26/2024 9:46 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 No / Unsure 03/25/2021 12:31 PM CDT documented as of this encounter Plan of Treatment Not on file documented as of this encounter Visit Diagnoses Not on filedocumented in this encounter Additional Health Concerns Infection Onset Date Last Indicated Resolved Time COVID-19 Rule Out 04/21/2021 04/21/2021 04/23/2021 2:38 PM CDT COVID-19 Confirmed 04/21/2021 04/21/2021 12:34 AM CDT COVID-19 Rule Out 12/10/2021 12/10/2021 12/10/2021 11:47 AM CREATIVE ENGAGEMENT DIRECTOR COVID-19 Rule Out 10/25/2022 10/25/2022 10/25/2022 1:56 PM CREATIVE ENGAGEMENT DIRECTOR documented as of this encounter Care Teams Enroute Controller Relationship Specialty Start Date End Date Bettie Thrasher NP PCP - General NURSE PRACTITIONER 03/26/21 12/09/21 None, Provider, PCP - General 12/10/21 12/31/21 None, Provider, PCP - General 01/28/22 08/24/22 [place] [address] [place] [address] PCP - General PHYSICIAN COMMODITY LEAD 08/25/22 12/25/24 Amparo Reina FNP- [address] [place] [address] PCP - General NURSE PRACTITIONER 12/26/24 documented as of this encounter
--- OUTSIDE RECORDS SUMMARY | 2025-02-18 23:06 | XMS_ITS | Referral Summary ---
Author Organization [facility] Address [address] [place] [address] Care Team Providers Care Furnace Process Plant Operator Name Role Phone Amparo Reina NP Primary Care Provider [phone] Encounters Date Type Department Care Team Description 12/21/2024 2:30 PM BUSINESS ANALYTICS DIRECTOR Office Visit [facility] [address] [address] Marizol Alfonso PA Acute bacterial conjunctivitis of right eye (Primary Dx) 12/07/2024 Telephone [facility] [address] [address] Amparo Reina NP 11/27/2024 Telephone [facility] [address] [address] Amparo Reina NP Xray results 11/23/2024 3:30 PM BUSINESS ANALYTICS DIRECTOR Ancillary Procedure [facility] Imaging at [address] [address] Lumbar pain 11/23/2024 3:15 PM BUSINESS ANALYTICS DIRECTOR Ancillary Procedure [facility] at [address] [address] Contusion of right thumb without damage to nail, initial encounter from Last 3 Months Allergies No known active allergies Medications buPROPion [...] for nausea or vomiting 10 tablet 11/12/20 Active Additional Information Patient not taking.Reported on 12/21/2024 phentermine 37.5 mg capsule Take 1 capsule (37.5 mg total) by mouth every morning 30 capsule 2 11/09/20 24 025 Additional Information Patient not taking.Reported on 12/21/2024 Active Problems Problem Noted Date Diagnosed Date Lumbar pain 11/13/2024 Assessment & Plan (11/13/2024 7:37 AM BUSINESS ANALYTICS DIRECTOR): Will start with x-ray of lumbar spine. Referral to physical therapy with added diagnosis of lumbar pain. Contusion of right thumb without damage to nail 11/13/2024 Assessment & Plan (11/13/2024 7:37 AM BUSINESS ANALYTICS DIRECTOR): X-ray right thumb Right wrist pain 07/14/2024 Assessment & Plan (07/14/2024 8:53 AM CDT): Will order x-ray. Referral to sports Medicine Chronic right shoulder pain 07/14/2024 Assessment & Plan (07/14/2024 8:53 AM CDT): Will order x-ray. Referral to sports Medicine Hypertension, essential 12/16/2023 Assessment & Plan (11/09/2024 4:23 PM BUSINESS ANALYTICS DIRECTOR): Blood pressure remains controlled on labetalol 200mg [...] another Assessment & Plan (12/16/2023 11:55 AM BUSINESS ANALYTICS DIRECTOR): Stable/ Improved. Blood pressure is adequately controlled on current medication. Will continue labetalol 200 mg b.i.d.. Blood pressure is well controlled on that so will continue. We will not make any medication changes today. Will have her follow-up in 6 months for continued monitoring and management Chronic left shoulder pain 12/16/2023 Assessment & Plan (12/16/2023 11:56 AM BUSINESS ANALYTICS DIRECTOR): Intermittent pain. Will refer to sports Medicine for evaluation H/O bilateral breast implants 12/16/2023 Assessment & Plan (12/16/2023 11:56 AM BUSINESS ANALYTICS DIRECTOR): Has been told she needs 10 year MRI. Will refer to plastics for evaluation. Class 1 obesity due to exces s calories with serious comorbidity and body mass index (BMI) of 31.0 to 31.9 in adult 12/16/2023 Assessment & Plan (11/13/2024 7:35 AM BUSINESS ANALYTICS DIRECTOR): We prescribed Phentermine continuation today. This medication [...] follow-up Assessment & Plan (12/16/2023 11:57 AM BUSINESS ANALYTICS DIRECTOR): Had some improvement with Contrave but then [...] it Assessment & Plan (11/09/2024 4:24 PM BUSINESS ANALYTICS DIRECTOR): Having aches and pains - sometimes has [...] daily Assessment & Plan (12/16/2023 11:58 AM BUSINESS ANALYTICS DIRECTOR): Stable. Doing well with Lexapro 10 mg [...] Referral from Dr. 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 LASIK OU Co-manage with Dr. Valdovinos [place] [facility] OU Patient requested to have eyes dilated at Dr. Valdovinos's office before surgery Immunizations Immunization Administration Dates Next Due DTaP 07/11/1996, 3,02/03/1992,10/28,1991 Hep B Vaccine 09/06/2017 Hep B, Adolescent or Pediatric 03/01/2001,1999,08/24/2000 HiB 09/28/1992, 2,1991,08/19 Hib (HbOC) 09/28/1992, 2,1991,08/19 Influenza, Quadrivalent, Diandra l Culture-based MDCK, Preservative Free, Antibiotic Free, Intramuscular 09/01/2023,08/14/2022,08/04/2017 Influenza, Quadrivalent, Spl it, Preservative Free, Intramuscular 07/27/2018 Influenza, Trivalent, Cell Culture-based MDCK, Preservative Free, Antibiotic Free, Intramuscular 08/12/2024,08/04/2017 Influenza, Trivalent, IM (MDV) 08/18/2021 Influenza, Unspecified 08/10/2024(Deferr ed: Patient Refused),09/01/2023,07/27/2018 MMR 07/11/1996,09/28/1992 OPV 07/11/1996, 3,1991,08/19 OPV, Unspecified 07/11/1996, 3,1991,08/19 PPD TEST 06/13/2024 Tdap 08/26/2022 Social History Tobacco Use Types Packs/Day Years Used Date Smoking Tobacco: Never Smokeless Tobacco: Never Tobacco Cessation:Counseling Given: Not Answered PHQ-2 Answer Date Recorded PHQ-2 Total Score (If total score is 3 or more points, staff should administer the PHQ-9) 0 08/10/2024 Comments Unknown Sex and Gender Information Value Date Recorded Sex Assigned at Not on file Legal Sex Female 9:59 AM BUSINESS ANALYTICS DIRECTOR Gender Identity Not on file Sexual Orientation Not on file Last Filed Vital Signs Vital Sign Reading Time Taken Comments Blood Pressure 116/68 12/21/2024 2:21 PM BUSINESS ANALYTICS DIRECTOR Pulse 87 12/21/2024 2:21 PM BUSINESS ANALYTICS DIRECTOR Temperature 36.7 C (98.1 F) 12/21/2024 2:21 PM BUSINESS ANALYTICS DIRECTOR Respiratory Rate 24 12/21/2024 2:21 PM BUSINESS ANALYTICS DIRECTOR Oxygen Saturation 98% 12/21/2024 2:21 PM BUSINESS ANALYTICS DIRECTOR Inhaled Oxygen Concentration - - Weight 83.9 kg (185 lb) 11/12/2024 11:51 AM BUSINESS ANALYTICS DIRECTOR Height 165.1 cm (5' 5 ) 11/12/2024 11:51 AM BUSINESS ANALYTICS DIRECTOR Body Mass Index 30.79 11/12/2024 11:51 AM BUSINESS ANALYTICS DIRECTOR Plan of Treatment Not on file Procedures Procedure Name Priority Date/Time Associated Diagnosis Comments XR FINGER THUMB RIGHT Schedule Routine, Read Routine (OP Routine) 11/23/2024 3:09 PM BUSINESS ANALYTICS DIRECTOR Contusion of right thumb without damage to nail, initial encounter XR SPINE LUMBAR 2 OR 3 VIEWS Schedule Routine, Read Routine (OP Routine) 11/23/2024 3:09 PM BUSINESS ANALYTICS DIRECTOR Lumbar pain from Last 3 Months Results * XR Finger Thumb Right Minimum 2 Views (11/23/2024 3:09 PM BUSINESS ANALYTICS DIRECTOR) Anatomical Region Laterality Modality Upper Extremities, Hand, Fingers Right Digital Radiography 11/24/2024 5:07 PM BUSINESS ANALYTICS DIRECTOR Narrative 11/24/2024 5:10 PM BUSINESS ANALYTICS DIRECTOR EXAM DESCRIPTION: XR FINGER THUMB RIGHT MINIMUM [...] by Toney Kitchen M.D. T: Report ID: [id number] Reading Location: [id number] Procedure Note Toney Kitchen MD - 11/24/2024 [...] by Toney Kitchen M.D. T: Report ID: [id number] Reading Location: [id number] Amparo Reina NP IMG XR PROCEDURES Final Resul t * XR Spine Lumbar 2 or 3 Views (11/23/2024 3:09 PM BUSINESS ANALYTICS DIRECTOR) Anatomical Region Laterality Modality Spine N/A Digital Radiogra phy 11/24/2024 5:07 PM BUSINESS ANALYTICS DIRECTOR Narrative 11/24/2024 5:10 PM BUSINESS ANALYTICS DIRECTOR EXAM DESCRIPTION: XR FINGER THUMB RIGHT MINIMUM [...] by Toney Kitchen M.D. T: Report ID: [id number] Reading Location: [id number] Procedure Note Toney Kitchen MD - 11/24/2024 [...] by Toney Kitchen M.D. T: Report ID: [id number] Reading Location: [id number] Amparo Reina NP IMG XR PROCEDURES Final Resul t from Last 3 Months Insurance [facility] [employer] Address: [facility] [id number] [place] [address] [employer] ACCESS CHOICE Member Subscriber Plan / Payer ( fective 2024-Present) Name:Taylor Freireette Relation to Subscriber:Self Name:Taylor Freireette Payer ID:[id number] (NAIC) Type:[facility] Address: [id number] [facility] [employer] Address: [address] [place] [address] Care Teams Furnace Process Plant Operator Relationship Specialty Start Date End Date Amparo Reina NP PCP - General Family Medicine 12/14/23
--- OUTSIDE RECORDS SUMMARY | 2025-02-18 23:06 | XMS_ITS | Encounter Summary ---
Author Organization [facility] Address [address] [place] [address] Care Team Providers Care Management Consultant Name Role Phone Bettie Thrasher NP Primary Care Provider Unav ailable None, Provider Primary Care Provider Unavaila ble None, Provider Primary Care Provider Unavaila ble Nuvia Bates Primary Care Provider [phone] Amparo Reina [facility] Primary Care Provider [phone] Encounter Details Date Type Department Care Team (Late st Contact Info) Description 06/08/2021 [employer] Message Enc [facility] Medical Group Family & Internal Medicine [address] [address] Bettie Thrasher, RIO RE: Question [...] Sex Assigned at Female 12/26/2024 9:46 PM 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 Legal Sex Female 8:58 PM CDT Gender [...] Rule Out 12/10/2021 12/10/2021 12/10/2021 11:47 AM CULLET CRUSHER COVID-19 Rule Out 10/25/2022 10/25/2022 10/25/2022 1:56 PM CULLET CRUSHER documented as of this encounter Care Teams Management Consultant Relationship Specialty Start Date End Date Bettie Thrasher NP PCP - General NURSE PRACTITIONER 03/26/21 12/09/21 None, Provider, PCP - General 12/10/21 12/31/21 None, Provider, PCP - General 01/28/22 08/24/22 [place] [address] [place] [address] PCP - General PHYSICIAN OFFSHORE WIND OPERATIONS MANAGER 08/25/22 12/25/24 Amparo Reina FNP- [address] [place] [address] PCP - General NURSE PRACTITIONER 12/26/24 documented as of this encounter
--- OUTSIDE RECORDS SUMMARY | 2025-02-18 23:06 | XMS_ITS | Data Portability ---
Author Organization [facility], [id number] Address [address] [place] [address] Assessment No assessment recorded. Plan of Treatment Reminders Order Date Submit Date Provider Last Modified By Organization Details Last Modified Time Details Appointments Follow Up OB 15 2024 12:15P M ANATOLIY RAVI MD Not available Not available Not available Lab methicill in resistant staphyloc occus aureus, culture, nasal [address] [facility] ([facility]), [address] , [address], [place], [address], 02/16/2025 12:01:11 glucose tolerance test, gestation al, 1-hour 2024 025 [facility] ([facility]), [address] [place] [address], [address], 02/16/2025 12:01:11 HbA1c (hemoglob in A1c), blood 2024 025 [facility] ([facility]), [address] [place] [address], [address], 01/19/2025 09:25:42 pap, LB 2024 025 [facility] ([facility] [employer]), [address], [place], [address], 01/22/2025 10:54:10 HPV DNA, high-risk 2024 025 [facility] ([facility]), [address], [place], [address], 01/22/2025 10:54:10 CMP, serum or plasma 2024 025 [facility] ([facility]), [address], [place], [address], 01/19/2025 09:25:40 protein/c reatinine , ratio, urine 2024 [facility]), [address] , [address], [place], [address], 02/16/2025 12:01:11 abo group + rh type, blood 2024 025 ANIYAH Not available 01/19/2025 09:25:39 antibody screen, serum or plasma 2024 025 ANIYAH Not available 01/19/2025 09:25:39 CBC w/ diff 2024 025 [facility] Not available 02/15/2025 15:55:30 rubella igg Ab screen, serum 2024 025 ANIYAH Not available 01/19/2025 09:25:41 syphilis Ab, igg 2024 025 ANI[facility] Not available 01/19/2025 09:25:44 HIV 1+2 AB + HIV 1 p24 Ag, qualitati ve immunoass ay, serum 2024 025 [facility] Not available 02/15/2025 15:55:30 HBsAg (hepatiti s B surface Ag), serum 2024 025 [facility] Not available 02/15/2025 15:55:31 Hepatitis C IgG Ab, qual, serum 2024 025 [facility] Not available 02/15/2025 15:55:31 urinalysi s, complete 2024 025 ANI[facility] Not available 01/19/2025 08:15:15 culture, urine + sensitivi ty 2024 025 [facility] Not available 02/15/2025 15:55:31 CT + NG + TV, DNA, urine/swa b 2024 [facility] ([facility]), [address], [place], [address], 01/22/2025 10:54:10 drug screen, urine 2024 [facility]), [address], [place], [address], 01/19/2025 08:15:15 Referral None recorded. Procedures None recorded. Surgeries None recorded. Imaging electroca rdiogram 2024 [email or web address] Not available 02/16/2025 12:01:23 Medication Orders None recorded. Patient TargetsNo targets recorded. Patient Instructions Encounter Date Encounter Id Patient Instructions Last Modified By Organization Details Last Modified Time 01/18/2025 [id number] handout s were provided to the patient. Recommend taking vitamins with DHA daily. Recommend avoiding alcoholic beverages; the patient was encouraged not to smoke. Provided information and recommendations regarding weight gain and nutrition in . Provided specific recommendations regarding mercury containing foods (including tuna, swordfish, tilefish, and shark). Discussed avoiding potential exposure to Listeria. Discussed the risks involved with the consumption of uncooked meat and fish. Reviewed recommendations for exercise in . Discussed the content of care including schedule of appointments; schedule for laboratory testing; and schedule for ultrasound. Discussed the options for testing for Down syndrome and other forms of aneuploidy. Reviewed the difference between screening tests and diagnostic tests. Reviewed options for screening (including cffDNA; NT assessment; second trimester serum screening; and sequential/integrat ed screening). Reviewed options for diagnostic testing including CVS and amniocentesis. Discussed screening for CF/SMA and other genetic diseases. Travel and [place] precautions reviewed. Warnings regarding travel to [place] affected areas for both patient and partner discussed and advised to avoid. If partner is required to travel to affected area then patient advised to abstain from sexual activity for remainder of . Discussed COVID-19 precautions. Counseled, as appropriate, regarding the use of ASA 81 mg daily to prevent preeclampsia. Discussed the use of the patient portal for communication during . After each visit the patient will receive an after care summary (CCDA). The patient voiced understanding, and all her questions were addressed. She verbalized her understanding at the conclusion of the discussion. Additional information can be found here: [email or web address] Not available 01/17/2025 11:14:54 Reason for Referral None Reported. Results Created Date Observation Date Name Description Value Unit Range Abnormal Flag Note LastModifiedBy Organization Detail LastModifiedTime 01/18/2001/19/2025 PROTE IN/CR EATIN INE RATIO , RANDO M URINE SAMPL E creatinine, random urine sample 97.7 mg/dL No estab lishe d range s for rando m urine Not Available [facility] ([facility] [employer]) [address] [place] [address] Dr [address]ador, [place], [address], 01/19/2025 08:15:14 01/18/20 25 01/19/2025 PROTE IN/CR EATIN INE RATIO , RANDO M URINE SAMPL E protein, random urine sample 5.8 mg/dL No estab lishe d range s for rando m urine Not Available [facility] ([facility] [employer]) [address] [place] [address] Dr Amador, [place], [address], 01/19/2025 08:15:14 01/18/20 25 01/19/2025 PROTE IN/CR EATIN INE RATIO , RANDO M URINE SAMPL E protein/crea tinine ratio 0.06 Not Available [facility] ([facility] [employer]) [address] [place] [address] Dr Amador, [place], [address], 01/19/2025 08:15:14 01/18/20 25 01/19/2025 URINE DRUG SCREE N WITH REFLE X TO CONFI RMATI ON amphetamines NEGATI VE negati ve Not Available [facility] ([facility]) [facility] [address], [place], [address], 01/19/2025 08:15:15 01/18/20 25 01/19/2025 URINE DRUG SCREE N WITH REFLE X TO CONFI RMATI ON barbiturates NEGATI VE negati ve Not Available [facility] ([facility]) [address] [place] [address] Dr Amador, [place], [address], 01/19/2025 08:15:15 01/18/20 25 01/19/2025 URINE DRUG SCREE N WITH REFLE X TO CONFI RMATI ON benzodiazepi delia NEGATI VE negati ve Not Available [facility] ([facility]) [address] [place] [address] Dr Amador, [place], [address], 01/19/2025 08:15:15 01/18/20 25 01/19/2025 URINE DRUG SCREE N WITH REFLE X TO CONFI RMATI ON cannabinoids NEGATI VE negati ve Not Available [facility] ([facility]) [address] [place] [address] Dr Amador, [place], [address], 01/19/2025 08:15:15 01/18/20 25 01/19/2025 URINE DRUG SCREE N WITH REFLE X TO CONFI RMATI ON cocaine metabolites NEGATI VE negati ve Not Available [facility] ([facility]) [address] [place] [address] Dr Amador, [place], [address], 01/19/2025 08:15:15 01/18/20 25 01/19/2025 URINE DRUG SCREE N WITH REFLE X TO CONFI RMATI ON oxycodone NEGATI VE negati ve Not Available [facility] ([facility]) [address] [place] [address] Dr Amador, [place], [address], 01/19/2025 08:15:15 01/18/20 25 01/19/2025 URINE DRUG SCREE N WITH REFLE X TO CONFI RMATI ON methadone NEGATI VE negati ve Not Available [facility] ([facility]) [address] [place] [address] Dr Amador, [place], [address], 01/19/2025 08:15:15 01/18/20 25 01/19/2025 URINE DRUG SCREE N WITH REFLE X TO CONFI RMATI ON opiates NEGATI VE negati ve Not Available [facility] ([facility]) [address] [place] [address] Dr Amador, [place], [address], 01/19/2025 08:15:15 01/18/20 25 01/19/2025 URINE DRUG SCREE N WITH REFLE X TO CONFI RMATI ON phencyclidin e NEGATI VE negati ve Not Available [facility] ([facility]) [address] [place] [address] Dr Amador, [place], [address], 01/19/2025 08:15:15 01/18/20 25 01/19/2025 URINE DRUG SCREE N WITH REFLE X TO CONFI RMATI ON propoxyphene NEGATI VE negati ve Not Available [facility] ([facility]) [address] [place] [address] Dr Amador, [place], [address], 01/19/2025 08:15:15 01/18/20 25 01/19/2025 URINE DRUG SCREE N WITH REFLE X TO CONFI RMATI ON immunoassay drug screen cut off values See Below Pleas e see the Direc tory of Servi sonu for cut-o ff brianne ntrat ions. Urine drug scree n resul ts are for medic al decis ion makin g and are not to be used for medic o-leg al evalu ation . Not Available [facility] ([facility]) [address] [place] [address] Dr Amador, [place], [address], 01/19/2025 08:15:15 01/18/20 25 01/19/2025 URINA LYSIS (UA) WITH REFLE X TO MICRO SCOPI C urine type Voided Not Available [facility] ([facility]) [address] [place] [address] Dr Amador, [place], [address], 01/19/2025 08:15:15 01/18/20 25 01/19/2025 URINA LYSIS (UA) WITH REFLE X TO MICRO SCOPI C urine color Yellow yellow Not Available [facility] ([facility]) [address] [place] [address] Dr Amador, [place], [address], 01/19/2025 08:15:15 01/18/20 25 01/19/2025 URINA LYSIS (UA) WITH REFLE X TO MICRO SCOPI C urine appearance Cloudy clear abnormal Not Available [facility] ([facility]) [address] [place] [address] Dr Amador, [place], [address], 01/19/2025 08:15:15 01/18/20 25 01/19/2025 URINA LYSIS (UA) WITH REFLE X TO MICRO SCOPI C urine specific gravity 1.021 1.005- 1.030 Not Available [facility] ([facility]) [address] [place] [address] Dr Amador, [place], [address], 01/19/2025 08:15:15 01/18/20 25 01/19/2025 URINA LYSIS (UA) WITH REFLE X TO MICRO SCOPI C urine pH 7.0 5.0-9. 0 Not Available [facility] ([facility]) [address] [place] [address] Dr Amador, [place], [address], 01/19/2025 08:15:15 01/18/20 25 01/19/2025 URINA LYSIS (UA) WITH REFLE X TO MICRO SCOPI C urine leukocytes esterase Negati ve negati ve Not Available [facility] ([facility]) [address] [place] [address] Dr Amador, [place], [address], 01/19/2025 08:15:15 01/18/20 25 01/19/2025 URINA LYSIS (UA) WITH REFLE X TO MICRO SCOPI C urine nitrites Negati ve negati ve Not Available [facility] ([facility]) [address] [place] [address] Dr Amador, [place], [address], 01/19/2025 08:15:15 01/18/20 25 01/19/2025 URINA LYSIS (UA) WITH REFLE X TO MICRO SCOPI C urine protein Negati ve negati ve Not Available [facility] ([facility]) [address] [place] [address] Dr Amador, [place], [address], 01/19/2025 08:15:15 01/18/20 25 01/19/2025 URINA LYSIS (UA) WITH REFLE X TO MICRO SCOPI C urine glucose Negati ve negati ve Not Available [facility] ([facility]) [address] [place] [address] Dr Amador, [place], [address], 01/19/2025 08:15:15 01/18/20 25 01/19/2025 URINA LYSIS (UA) WITH REFLE X TO MICRO SCOPI C urine ketones Negati ve negati ve Not Available [facility] ([facility]) [address] [place] [address] Dr Amador, [place], [address], 01/19/2025 08:15:15 01/18/20 25 01/19/2025 URINA LYSIS (UA) WITH REFLE X TO MICRO SCOPI C urine urobilinogen 0.2 E.U./ dL 0.2-1. 0 Not Available [facility] ([facility]) [address] [place] [address] Dr Amador, [place], [address], 01/19/2025 08:15:15 01/18/20 25 01/19/2025 URINA LYSIS (UA) WITH REFLE X TO MICRO SCOPI C urine bilirubin Negati ve negati ve Not Available [facility] ([facility]) [address] [place] [address] Dr Amador, [place], [address], 01/19/2025 08:15:15 01/18/20 25 01/19/2025 URINA LYSIS (UA) WITH REFLE X TO MICRO SCOPI C urine blood Negati ve negati ve Not Available [facility] ([facility]) [address] [place] [address] Dr Amador, [place], [address], 01/19/2025 08:15:15 01/18/20 25 01/19/2025 URINA LYSIS , MICRO SCOPI C ONLY urine WBC 0-5 /hpf 0-5 Not Available [facility] ([facility]) [address] [place] [address] Dr Amador, [place], [address], 01/19/2025 08:15:15 01/18/20 25 01/19/2025 URINA LYSIS , MICRO SCOPI C ONLY urine RBC 3-5 /hpf 0-2 abnormal Not Available [facility] ([facility]) [address] [place] [address] Dr Amador, [place], [address], 01/19/2025 08:15:15 01/18/20 25 01/19/2025 URINA LYSIS , MICRO SCOPI C ONLY urine epithelial cells 0-2 /hpf 0-2 Not Available [facility] ([facility]) [address] [place] [address] Dr Amador, [place], [address], 01/19/2025 08:15:15 01/18/20 25 01/19/2025 URINA LYSIS , MICRO SCOPI C ONLY urine bacteria None Seen /hpf none seen Not Available [facility] ([facility]) [address] [place] [address] Dr Amador, [place], [address], 01/19/2025 08:15:15 01/18/20 25 01/19/2025 URINA LYSIS , MICRO SCOPI C ONLY urine casts 0-2 Hyalin e /lpf 0-2 Not Available [facility] ([facility]) [address] [place] [address] Dr Amador, [place], [address], 01/19/2025 08:15:15 01/18/20 25 01/19/2025 CBC WITH PLATE LET AND DIFFE RENTI AL WBC 9.1 K/uL 3.8-11 .5 Not Available [facility] ([facility]) [address] [place] [address] Dr Amador, [place], [address], 01/19/2025 09:25:38 01/18/20 25 01/19/2025 CBC WITH PLATE LET AND DIFFE RENTI AL red blood cell count (RBC) 4.07 M/mm3 3.60-5 .30 Not Available [facility] ([facility]) [address] [place] [address] Dr Amador, [place], [address], 01/19/2025 09:25:38 01/18/20 25 01/19/2025 CBC WITH PLATE LET AND DIFFE RENTI AL hemoglobin (HGB) 12.3 gm/dL 11.5-1 5.5 Not Available [facility] ([facility]) [address] [place] [address] Dr Amador, [place], [address], 01/19/2025 09:25:38 01/18/20 25 01/19/2025 CBC WITH PLATE LET AND DIFFE RENTI AL hematocrit (HCT) 38.1 % 35.2-4 6.4 Not Available [facility] ([facility]) [address] [place] [address] Dr Amador, [place], [address], 01/19/2025 09:25:38 01/18/20 25 01/19/2025 CBC WITH PLATE LET AND DIFFE RENTI AL MCV 93.6 fL 79.0-9 9.0 Not Available [facility] ([facility]) [address] [place] [address] Dr Amador, [place], [address], 01/19/2025 09:25:38 01/18/20 25 01/19/2025 CBC WITH PLATE LET AND DIFFE RENTI AL MCH 30.2 pg 26.9-3 5.0 Not Available [facility] ([facility]) [address] [place] [address] Dr Amador, [place], [address], 01/19/2025 09:25:38 01/18/20 25 01/19/2025 CBC WITH PLATE LET AND DIFFE RENTI AL MCHC 32.3 g/dL 30.4-3 4.8 Not Available [facility] ([facility]) [address] [place] [address] Dr Amador, [place], [address], 01/19/2025 09:25:38 01/18/20 25 01/19/2025 CBC WITH PLATE LET AND DIFFE RENTI AL RDW 46.5 fL 38.6-5 3.8 Not Available [facility]) [address] [place] [address] Dr Amador, [place], [address], 01/19/2025 09:25:38 01/18/20 25 01/19/2025 CBC WITH PLATE LET AND DIFFE RENTI AL platelet count 233 K/cum m 137-39 7 Not Available [facility]) [address] [place] [address] Dr Amador, [place], [address], 01/19/2025 09:25:38 01/18/20 25 01/19/2025 CBC WITH PLATE LET AND DIFFE RENTI AL neutrophils automated 73.8 % 41.0-7 7.0 Not Available [facility] ([facility]) [address] [place] [address] Dr Amador, [place], [address], 01/19/2025 09:25:38 01/18/20 25 01/19/2025 CBC WITH PLATE LET AND DIFFE RENTI AL lymphocytes automated 17.4 % 14.0-4 8.0 Not Available [facility] ([facility]) [address] [place] [address] Dr Amador, [place], [address], 01/19/2025 09:25:38 01/18/20 25 01/19/2025 CBC WITH PLATE LET AND DIFFE RENTI AL monocytes automated 5.2 % 4.0-13 .0 Not Available [facility] ([facility]) [address] [place] [address] Dr Amador, [place], [address], 01/19/2025 09:25:38 01/18/20 25 01/19/2025 CBC WITH PLATE LET AND DIFFE RENTI AL eosinophils automated 3.1 % 0.0-8. 0 Not Available [facility]) [address] [place] [address] Dr Amador, [place], [address], 01/19/2025 09:25:38 01/18/20 25 01/19/2025 CBC WITH PLATE LET AND DIFFE RENTI AL basophils automated 0.4 % 0.0-1. 5 Not Available [facility]) [address] [place] [address] Dr Amador, [place], [address], 01/19/2025 09:25:38 01/18/20 25 01/19/2025 CBC WITH PLATE LET AND DIFFE RENTI AL immature granulocyte automated 0.1 % 0.0-1. 0 Not Available [facility] ([facility]) [address] [place] [address] Amador, [place], [address], 01/19/2025 09:25:38 01/18/20 25 01/19/2025 ABORH TYPE, BLOOD BANK ABO type, blood bank O Not Available [facility] ([facility]) [address] [facility] [address], [place], [address], 01/19/2025 09:25:39 01/18/20 25 01/19/2025 ABORH TYPE, BLOOD BANK Rh typing, blood bank POSITI VE RH testi ng resul ts (RH Posit steve/R H Negat steve) are depen dent upon reage nt formu latio ns, techn ical perfo rmanc e of assay , and testi ng platf orm or metho dolog y. With the elimi natio n of routi ne testi ng for the weak expre ssion of the D antig en, some patie nts who have previ ously been class ified as RH Posit stvee many now be repor mike as RH Negat steve, or rarel y, vice versa . If you have any quest ions regar ding this test, pleas e call our Clgenna Gutierrez sonu depar tment . Not Available [facility] ([facility]) [facility] [facility] [address] Amador, [place], [address], 01/19/2025 09:25:39 01/18/20 25 01/19/2025 ANTIB CESAR SCREE N, REFLE X TO IDENT IFICA TION antibody screen, reflex to identificati on NEGATI VE negati ve Not Available [facility] ([facility]) [facility] [address] Amador, [place], [address], 01/19/2025 09:25:39 01/18/20 25 01/19/2025 COMPR EHENS STEVE METAB OLIC PANEL (CMP) sodium 140 mmol/ L 135-14 5 Not Available [facility]) [address] [place] [address] Dr Amador, [place], [address], 01/19/2025 09:25:40 01/18/20 25 01/19/2025 COMPR EHENS STEVE METAB OLIC PANEL (CMP) potassium 3.8 mmol/ L 3.5-5. 3 Not Available [facility] ([facility]) [address] [place] [address] Dr Amador, [place], [address], 01/19/2025 09:25:40 01/18/20 25 01/19/2025 COMPR EHENS STEVE METAB OLIC PANEL (CMP) chloride 103 mmol/ L 97-108 Not Available [facility] ([facility]) [address] [place] [address] Dr Amador, [place], [address], 01/19/2025 09:25:40 01/18/20 25 01/19/2025 COMPR EHENS STEVE METAB OLIC PANEL (CMP) CO2 24 mmol/ L 22-32 Not Available [facility] ([facility]) [address] [place] [address] Dr Amador, [place], [address], 01/19/2025 09:25:40 01/18/20 25 01/19/2025 COMPR EHENS STEVE METAB OLIC PANEL (CMP) glucose 78 mg/dL 65-99 Not Available [facility] ([facility]) [address] [place] [address] Dr Amador, [place], [address], 01/19/2025 09:25:40 01/18/20 25 01/19/2025 COMPR EHENS STEVE METAB OLIC PANEL (CMP) BUN 9 mg/dL 6-20 Not Available [facility] ([facility]) [address] [place] [address] Dr Amador, [place], [address], 01/19/2025 09:25:40 01/18/20 25 01/19/2025 COMPR EHENS STEVE METAB OLIC PANEL (CMP) creatinine 0.64 mg/dL 0.50-1 .00 Not Available [facility] ([facility]) [address] [place] [address] Dr Amador, [place], [address], 01/19/2025 09:25:40 01/18/20 25 01/19/2025 COMPR EHENS STEVE METAB OLIC PANEL (CMP) calcium 9.1 mg/dL 8.6-10 .4 Not Available [facility]) [address] [place] [address] Dr Amador, [place], [address], 01/19/2025 09:25:40 01/18/20 25 01/19/2025 COMPR EHENS STEVE METAB OLIC PANEL (CMP) eGFR by creatinine 119 mL/mi n/1.7 3m2 >59 Not Available [facility]) [address] [place] [address] Dr Amador, [place], [address], 01/19/2025 09:25:40 01/18/20 25 01/19/2025 COMPR EHENS STEVE METAB OLIC PANEL (CMP) protein 6.7 g/dL 6.0-8. 3 Not Available [facility]) [address] [place] [address] Dr Amador, [place], [address], 01/19/2025 09:25:40 01/18/20 25 01/19/2025 COMPR EHENS STEVE METAB OLIC PANEL (CMP) albumin 4.1 g/dL 3.5-5. 3 Not Available [facility]) [address] [place] [address] Dr Amador, [place], [address], 01/19/2025 09:25:40 01/18/20 25 01/19/2025 COMPR EHENS STEVE METAB OLIC PANEL (CMP) alkaline phosphatase 78 IU/L 35-121 Not Available [facility] ([facility]) [address] [place] [address] Dr Amador, [place], [address], 01/19/2025 09:25:40 01/18/20 25 01/19/2025 COMPR EHENS STEVE METAB OLIC PANEL (CMP) ALT (SGPT) 29 IU/L <5-47 Not Available [facility] ([facility]) [address] [place] [address] Amador, [place], [address], 01/19/2025 09:25:40 01/18/20 25 01/19/2025 COMPR EHENS STEVE METAB OLIC PANEL (CMP) AST (SGOT) 17 IU/L <5-40 Not Available [facility] ([facility]) [address] [place] [address] Amador, [place], [address], 01/19/2025 09:25:40 01/18/20 25 01/19/2025 COMPR EHENS STEVE METAB OLIC PANEL (CMP) bilirubin, total 0.2 mg/dL <0.2-1 .2 Not Available [facility] ([facility]) [address] [place] [address] Amador, [place], [address], 01/19/2025 09:25:40 01/18/20 25 01/19/2025 COMPR EHENS STEVE METAB OLIC PANEL (CMP) A/G ratio 1.6 1.1-2. 5 Not Available [facility] ([facility]) [address] [place] [address] Amador, [place], [address], 01/19/2025 09:25:40 01/18/20 25 01/19/2025 HIV 1/2 AB SCREE N W/P24 AG HIV 1/2 Ab screen w/p24ag Nonrea ctive nonrea ctive Not Available [facility] ([facility]) [address] [place] [address] Amador, [place], [address], 01/19/2025 09:25:40 02/27/01/19/2025 RUBEL LA ANTIB CESAR, IGG rubella antibody, IgG 41.1 IU/mL >9.9 INTER PRETA TION OF RESUL TS < 10.0 Non-i mmune /Non- react steve >= 10.0 Immun e/Joy ctive Prese nce of antib odies to Rubel la is presu mptiv e evide nce of immun ity excep t when acute infec tion is suspe cted. Not Available [facility] ([facility] [employer]) [facility] Dr Amador, [place], [address], 01/19/2025 09:25:41 01/18/2001/19/2025 GESTA ABDULKADIR L GLUCO SE LOUISE ANCE, 1-ANGELA R/50G (PREG NANT SCREE N) (140 THRES HOLD) gestational glucose tolerance, 1-hour/50g ( screen) (140 threshold) 69 mg/dL 65-139 The ACOG recom mends that an abnor mal 1-angela r gluco se test shoul d be verif ied with a 3-angela r oral gluco se louise ance test. Not Available [facility] [facility] [employer]) [address] [place] [address] Dr Amador, [place], [address], 01/19/2025 09:25:41 01/18/2001/19/2025 HEMOG LOBIN A1C hemoglobin A1C 5.1 % <5.7 The follo wing HbA1c range s recom gilles d by the [place] can Diabe jake Assoc iatio n (ADA) may be used as an aid in the diagn osis of diabe jake melli tus. HbA1c Sugge sted Diagn osis >=6.5 % Diabe tic 5.7% - 6.4% Pre-D iabet ic <5.7% Non-D iabet ic Not Available [facility] ([address] [facility] [employer]) [facility] Dr Amador, [place], [address], 01/19/2025 09:25:42 01/18/20 25 01/19/2025 HEMOG LOBIN A1C estimated average glucose (EAG) 100 mg/dL Estim ated Prospect ge Gluco se (eAG) is calcu lated using the equat ion eAG = (28.7 x HbA1c ) - 46.7 based on the guide lines estab lishe d by the ADA. If the patie nt has certa in disea ses inclu ding kidne y disea se, sickl e cell anemi a, thala ssemi a, or is takin g medic ation s such as dapso ne, eryth ropoi etin, or iron, eAG shoul d not be evalu ated. Not Available [facility] ([facility] [employer]) [address], [place], [address], 01/19/2025 09:25:42 01/18/20 25 01/19/2025 HEPAT ITIS B SURFA CE ANTIB ODIES (HBSA B) TOTAL hepatitis B surface antibodies (hbsab) total >1000 mIU/m L Indiv idual is consi dered to be immun e to infec tion with HBV. ----- ----- ----- ----- ----- ----- ----- ----- ----- ----- ----- ----- ----- ----- - Elecs ys Anti- HBs Resul t Resul t Inter preta tion <8.5 mlU/m L Negat steve 8.5-1 1.4 mlU/m L Indet ermin ate >= 11.5 mlU/m L Posit steve ----- ----- ----- ----- ----- ----- ----- ----- ----- ----- ----- ----- ----- ----- - Not Available [facility] ([address] [facility] [employer]) [address], [place], [address], 01/19/2025 09:25:42 01/18/20 25 01/19/2025 HEPAT ITIS C ANTIB CESAR (HCV) IGG hepatitis C antibody (HCV) IgG Nonrea ctive nonrea ctive Not Available [facility] [address] [place] [address] Dr Amador, [place], [address], 01/19/2025 09:25:43 01/18/20 25 01/19/2025 SYPHI LIS SCREE [place] PROFI LE, TREPO NEMAL ANTIB CESAR syphilis screening profile, treponemal antibody Nonrea ctive nonrea ctive No serol ogica l evide nce of infec tion with Trepo nemal palli dum, early prima ry syphi lis canno t be exclu ded. Retes t in 2-4 weeks if syphi lis is clini ping suspe cted. Not Available [facility]) [address] [place] [address] Dr Amador, [place], [address], 01/19/2025 09:25:44 01/18/20 25 01/20/2025 CULTU RE, URINE specimen source Urine - Void Not Available [facility] [address] [place] [address] Dr Amador, [place], [address], 01/20/2025 08:33:06 01/18/20 25 01/20/2025 CULTU RE, URINE culture, urine See Below Final Repor t : No growt h Not Available [facility] ([facility]) [address] [place] [address] Dr Amador, [place], [address], 01/20/2025 08:33:06 01/18/20 25 01/22/2025 PAP TEST THIN PREP Pap test thin prep Negati ve for Intrae pithel ial Lesion or Malign jane normal ACCES CYNTHIA #: [id number] Sourc e: Cervi keith/E ndoce rvica l LMP: 11/07 Date Taken : 01/18 Speci men Type: ThinP rep Vial Date Repor mike: 025 Clini keith Data: Cytot ech: Devi Bell, CT( CP) Date Repor mike: 025 Speci men Adequ acy: Satis facto ry for evalu ation Endoc ervic al/tr ansfo rmati on zone compo nent prese nt Gener al Categ oriza tion: NEGAT STEVE FOR INTRA EPITH ELIAL LESIO N OR MALIG KUSH The follo wing tests have been order ed as reque sted and a separ ate repor t will be issue d: Chlam ydia, Gonor rhoea e, and Trich omona s This speci men has been kaiser zed by the ThinP rep Imagi ng Syste m, an inter activ e compu ter syste m which yosi ts the lab in the [place] of ThinP rep Pap Test slide s. Follo wing imagi ng, the slide was revie wed by a Cytot echno logis t and/o r Patho logis t. Cervi keith cytol ogy is a [place] test prima rily for squam ous cance rs and precu rsors and has assoc iated false -nega tive and false -posi tive resul ts. New techn ologi es such as liqui d-bas ed prepa ratio ns may decre ase but will not elimi luis all false -nega tive resul ts. Regul ar sampl ing and follo w-up of unexp lily d clini keith signs and sympt oms are recom gilles d to minim ize false negat steve resul ts. D N A A S S A Y S R E P O R T TEST NAME RESUL TS ----- ---- ----- -- HPV High Risk Blade n (TMA) ThinP rep Vial The human papil lomav irus (HPV) High Risk Screroxann n is an FDA-a pprov ed in-vi tro ampli fied nucle ic acid test for the quali tativ e detec tion of E6/E7 viral mRNA. Resul ts shoul d be corre lated with patie nt prese ntati on, histo ry, cervi keith cytol ogy and other clini keith and labor atory findi ngs. See https ://Borro/s it/ defau /fi /- 62182 _002_ 01.pd f for furth er infor matio n. Test perfo rmed by [employer], [employer] d/b/a [facility], [address], [place] [address] , Jennifer Zambrano ra, , Labor at[facility], CLIA# [id number] HPV High Risk *HPV NOT DETEC MIKE (TYPE S 16, 18, 31, 33, 35, 39, 45, 51, 52, 56, 58, 59, 66, 68) *HPV: The human papil lomav irus (HPV) High Risk Blade brown is an FDA-a pprov ed in-vi tro ampli fied nucle ic acid test for the quali tativ e detec tion of E6/E7 viral mRNA. [facility] reno d be corre lated with patie nt prese ntati on, histo ry, cervi keith cytol ogy and other clini keith and labor atory findi ngs. See https ://Borro/s ites/ defau lt/fi 0 AW- 53311 _002_ 01.pd f for furth er infor matio n. Test perfo rmed by [employer], [employer] d/b/a Yany milligan, [address], [place] [address] , Jennifer Zambrano ra, DO, Labor at[facility], CLIA# [id number] End of Repor t Techn ical servi sonu provi ded by [employer], [facility], d/b/a [facility], [address] [place] [address] Justluis manuel grimaldo MD, Labor atory [facility]. Case revie wed and diagn osis rende red at [facility], d/b/a [facility], [address] [place] [address] Adrianna grimaldo MD, [facility]. CONFI DENTI AL Not Available [facility] ([facility]) [address], [place], [address], 01/22/2025 10:54:09 01/18/20 25 01/19/2025 CHLAM YDIA, GONOR RHOEA E, AND TRICH OMONA S trichomonas vaginalis, aptima (panther) NOT DETECT ED normal DNA testi ng perfo rmed by [employer] mike Ampli ficat ion (TMA) . Resul ts shoul d be inter prete d in conju nctio n with patie nt histo ry and clini keith prese ntati on. This assay is highl y accur ate, but rare false posit steve and negat steve resul ts may occur . Posit steve resul ts in low preva lence popul ation s may requi re re-ev aluat ion. A negat steve resul t does not precl ude a possi ble infec tion due to a speci men inade quacy or sampl ing error . Test perfo rmed by [facility] d/b/a [facility], [address], [place] [address] , Jennifer Zambrano ra, DO, Labor [facility], CLIA# [id number] Not Available [facility] ([facility]) [address], [place], [address], 01/22/2025 10:54:10 01/18/20 25 01/19/2025 CHLAM YDIA, GONOR RHOEA E, AND TRICH OMONA S neisseria gonorrhoeae, aptima NOT DETECT ED normal DNA testi ng perfo rmed by [employer]ike Ampli ficat ion (TMA) . Resul ts shoul d be inter prete d in conju nctio n with patie nt histo ry and clini keith prese ntati on. This assay is highl y accur ate, but rare false posit steve and negat steve resul ts may occur . Posit steve resul ts in low preva lence popul ation s may requi re re-ev aluat ion. A negat steve resul t does not precl ude a possi ble infec tion due to a speci men inade quacy or sampl ing error . Test perfo rmed by [facility] d/b/a [facility], [address], [place] [address] , Jennifer Zambrano ra, DO, Labor atory [facility], CLIA# [id number] Not Available [facility] ([facility]) [address], [place], [address], 01/22/2025 10:54:10 01/18/20 25 01/19/2025 CHLAM YDIA, GONOR RHOEA E, AND TRICH OMONA S chlamydia trachomatis, aptima NOT DETECT ED normal DNA testi ng perfo rmed by [employer]ike Ampli ficat ion (TMA) . Resul ts shoul d be inter prete d in conju nctio n with patie nt histo ry and clini keith prese ntati on. This assay is highl y accur ate, but rare false posit steve and negat steve resul ts may occur . Posit steve resul ts in low preva lence popul ation s may requi re re-ev aluat ion. A negat steve resul t does not precl ude a possi ble infec tion due to a speci men inade quacy or sampl ing error . Test perfo rmed by [facility]/b/a [facility], [address], [facility] [place] [address] , Jennifer Zambrano ra, DO, Labor atory [facility], CLIA# [id number] Not Available [facility] ([facility]) [address], [place], [address], 01/22/2025 10:54:10 01/18/20 25 01/19/2025 HPV HIGH RISK BLADE Brown (TMA) HPV high risk NOT DETECT ED normal The human papil lomav irus (HPV) High Risk Blade n is an FDA-a pprov ed in-vi tro ampli fied nucle ic acid test for the quali tativ e detec tion of E6/E7 viral mRNA. Resul ts reno d be corre lated with patie nt prese ntati on, histo ry, cervi keith cytol ogy and other clini keith and labor atory findi ngs. See https ://Borro/s ites/ defau lt/fi les/2 018-0 3/AW- 15950 _002_ 01.pd f for furth er infor shraddha n. Test perfo rmed by [facility] d/b/a [facility] rou[facility], [address], [place] [address] , Jennifer Zambrano ra, DO, Labor atory [facility]# [id number] Not Available [facility] ([facility]) [address], [place], [address], 01/22/2025 10:54:10 Result Notes None recorded. Problems Name Problem SNOMED Code Status Onset Date Resolution Date Notes Provider Name and Address Organization Details Recorded Time Hypertens steve disorder 06377443 Active 2024 Sadie Escoto null, [place] - [facility] 5 11:07:56 Major depressiv e disorder 474599307 Active 2024 Sadie Escoto null, [place] - [facility] 5 11:08:02 Anxiety 62192067 Active 2024 Sadie Escoto [place], [place] - [facility] 5 11:08:08 00614387 Active 2024 Sadie Escoto null, [place] - [facility] 5 11:13:05 Past history of pre-eclam psia 545514197886 100 Active G3--IOL at 35 weeks for Severe PreE with severe range BPs. ANATOLIY RAVI MD [address] [facility] [address], [place], [place], [address], [facility] - [facility] 5 11:05:00 Multigrav trina of advanced maternal age 941622559 Active 2024 Sadie Escoto null, [place] - [facility] 5 11:14:57 Elderly primigrav trina 65320410 Active 2024 Sadie Escoto null, [place] - [facility] 5 11:14:57 Maternal hypertens ion 201888783 Active 2024 Sadie Escoto null, [place] - [facility] 5 11:42:53 Generaliz ed anxiety disorder 93053080 Active On wellbutri n ANATOLIY RAVI MD [address], [place], [place], [address], [facility] - [facility] 5 11:05:27 Maternal obesity complicat ing , childbirt h and the puerperiu m, antepartu m 057120237688 Active 31.8, serial US and testing ANATOLIY RAVI MD [address], [place], [place], [address], [facility] 5 12:41:44 Maternal obesity complicat ing , childbirt h and the puerperiu m, antepartu m 115662227075 Active 31.8, serial US and testing ANATOLIY RAVI MD [address], [place], [address], [facility] 5 12:41:44 Threatene d miscarria ge 15833492 Active 2024 ANATOLIY RAVI MD [address], [place], [address], [facility] 12:57:54 Problem Notes None recorded. Procedures Surgical History Date Name Laterality Status Provider Name and Address Organization Details Recorded Time U/S OB FIRST TRIMESTER ([facility]) completed ANATOLIY NUNO MD [address], [place], [address], [facility] 01/18/2025 12:56:25 Date of Last Pap Smear completed Sadie [facility] 01/17/2025 11:09:15 Imaging Results None recorded. Procedure Notes None recorded. Medical Equipment None Reported. Allergies No known drug allergies Medications Name Sig Start Date Stop Date Status Note LastModified by Organization Details LastModified Time labetalol 200 mg tablet Take 1 tablet twice a day by oral route. active Not Available Not Available No t Available meloxicam 15 mg tablet 01/18 completed Not Available Not Available Not Available amoxicillin 875 mg tablet TAKE 1 TABLET BY MOUTH TWICE DAILY UNTIL ALL TAKEN 01/18 completed Not Available Not Available Not Available erythromycin 5 mg/gram (0.5 %) eye ointment APPLY THIN LAYER IN RIGHT EYE FOUR TIMES DAILY FOR 7 DAYS 01/18 completed Not Available Not Available Not Available dexamethason e 4 mg tablet TAKE 1 TABLET BY MOUTH EVERY MORNING UNTIL ALL TAKEN 01/18 completed Not Available Not Available Not Available ondansetron 4 mg disintegrati ng tablet 01/18 completed Not Available Not Available Not Available phentermine 37.5 mg capsule 01/18 completed Not Available Not Available Not Available escitalopram 10 mg tablet 01/18 completed Not Available Not Available Not Available bupropion HCl XL 150 mg 24 hr tablet, extended release 01/18 completed Not Available Not Available Not Available aspirin active Not Available Not Avail able Not Available active Not Available Not Avai lable Not Available Wellbutrin 01/18 completed Not Available Not Available Not Available Vitals Date Recorded Body height Body mass index (BMI) Body weight Systolic blood pressure Diastolic blood pressure Provider Name and Address Organization Details Last Updated DateTime 01/18/2025 163.83 cm 31.3 kg/m2 40550.58 845 g 124 mm[Hg] 82 mm[Hg] Sadie Escoto [facility] 12:30:03 Date Recorded Body weight Body mass index (BMI) Body height Systolic blood pressure Diastolic blood pressure Provider Name and Address Organization Details Last Updated DateTime 02/08/2025 98647.58 845 g 31.3 kg/m2 163.83 cm 128 mm[Hg] 68 mm[Hg] Carol Steen [facility] 12:51:53 Social History Question Answer Notes LastModified by Organizat ion Details LastModified Time Tobacco Smoking Status Never Smoker Sadie Escoto [facility] 01/17/2025 11:04:23 What Is Your Level Of Alcohol Consumption? Occasional [email or web address] Information not available 01/17/2025 Are You Currently Employed? 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 [email or web address] Information not available 01/17/2025 Do You Use Any Illicit Or Recreational Drugs? No Former [employer] Edibles (gummies) [email or web address] Information not available 01/17/2025 Sex: Unknown Functional Status None recorded. Mental Status None recorded. Family History Relationship Description Onset Age of this Age Resolved Age Notes LastModified by Organization Details LastModified Time Father Asthma [email or web address] Not available 12:52:07 Father Diabetes mellitus type II [email or web address] Not available 01/17/2025 11:11:24 Father Hypercholest erolemia [email or web address] Not available 01/17 11:11:36 Father Hypertensive disorder [email or web address] Not available 01/17 11:12:11 Maternal Grandmother Family history of malignant neoplasm of lung [email or web address] Not available 2024 12:52:07 Mother Depressive disorder [email or web address] Not available 01/17 11:10:48 Mother Hypertensive disorder [email or web address] Not available 01/17 11:12:11 Mother Hyperthyroid ism [email or web address] Not available 01/17 11:12:26 Mother Corticobasal syndrome [email or web address] Not available 2024 12:52:07 Sister Depressive disorder Not available 01/17 11:10:48 Paternal Grandfather Diabetes mellitus type II [email or web address] Not available 01/17/2025 11:11:24 Paternal Grandmother Heart disease [email or web address] Not available 01/17 11:11:53 Medical History No medical history recorded. Gynecological History Statement/Question Response 10 History of PCOS N Flow Heavy History of Fibroids N Date of LMP 11/07/2024 History of Infertility N History of Cervical Dysplasia N History of Vulvar Dysplasia N Duration of Flow (days) 7-10 History of Recurrent Ovarian Cysts N Age at first intercourse 16 History of Endometriosis N Sexually Active? Y History of Dysmenorrhea N Menses Monthly Y Date of Last Pap Smear 02/07/2021 Sexual Problems? N History of Sexually Transmitted Infectio n N Obstetrics History GPAL:G 5 P 2 1 0 3 Type Value Full Term 2 Premature 1 Living 3 Total 5 Past Encounters Encounter ID Performer Location Encounter Start Date Encounter Closed Date Diagnosis/Indication Diagnosis SNOMED-CT Code Diagnosis ICD10 Code Diagnosis Note [id number] ANATOLIY ESTRADA RD, MD [id number] [facility] _ [address] [place] [address] 01/18/2025 12:10:38 01/18/2025 13:01:39 screening 382351824 Z36.9 Screening for malignant neoplasm of cervix 146043603 Z12.4 Human carlos lloma virus screening 486748787 Z11.51 History of methicillin resistant Staphylococcus aureus infection 098155850 Z86.14 Past pregn jane history of pre-eclampsia 3952150269 78211 Z87.59 Maternal o besity complicating , childbirth and the puerperium, antepartum 8533945248 07 O99.210 Threatened miscarriage 72355265 O20.0 [id number] [facility]E [facility] [id number] [facility] [address] [facility] [address] [place] [address] 02/08/2025 12:47:19 02/08/2025 13:07:12 Normal in multigravida 8794221555 59854 Z34.81 Health Concerns Section Related Observation LastModified by Organization Detai ls LastModified Time None Recorded Concern Status LastModified by Organization Details LastModified Time None Recorded Advance Directives Directive None Recorded Payers Encounter Date Sequence Insurance Name Policy Number Policy Pate Covered Member ID Pate Member ID Guarantor Name 01/18/2025 1 *SELF PAY* Brigitte Freire 02/08/2025 1 [employer] - [facility] DIRECT (PPO) Shira Freire [id number] Shira Freire Notes Date Note Type Note Provider Name and Address Organization Details Recorded Time 01/18/2025 text/html Manager Forms offere d per [facility] policy. Manager Forms was{{ACCEPTED DECLIN ED}}.Reason For Declination: {{Pt only wants provider in exam room Pt does not feel the need for a server cashier}}New Patient Obstetrical HistoryPatient is a {{FREE TEXT 33#}} year old female, G{{FREE TEXT 4#}}P{{FREE TEXT 3#}}.Menstrual cycles are {{regular* IRREGULAR }} and occur approximately every {{ 28#}} days, with LMP of {{ 12#}}/{{ 17#}}/ {{ 24#}}.Based on LMP estimated gestational age is {{ 9#}} wks and {{ 2#}} days.Ultrasound was performed on {{ 02#}}/{{ 27#}}/{{ 25#}} which showed estimated gestational age of {{}} wks and {{}} days.Final EDC determined to be {{}}/{{}}/{{}} based on {{LMP US}}. OB history is significant for the following {{FREE TEXT see worksheet#}}PMH:Hype rtension: {{yes no yes, history of pre-eclampsia#}}Gest ational diabetes: {{yes no*}}Diabetes: {{yes no*}}Rheumatol ogic disorder (e.g. SLE): {{yes no*}}Neurologi c disorder: {{yes no*}}Thyroid disease: {{yes no*}}Infertili ty: {{yes no*}}DVT/PE/AP S: {{yes no*}} She has been taking the following medications since her LMP: {{FREE TEXT}}.She {{has has not*}} been exposed to any toxins, chemicals or radiation since her LMP.She {{did did not*}} require fertility treatmentSince her LMP she has had the following symptoms: {{FREE TEXT}} Infection HistoryPatient of partner has history of genital herpes {{no* yes}}History of STD (GC, CT, HPV, syphilis, HIV) {{no* yes}}History of LEEP, cervical conization, cervical laser ablation or cervical cryosurgery {{no* yes}}Lives with someone with TB or TB exposed {{no* yes}}Rash or viral illness since LMP {{no* yes}}Have you received the flu vaccine this year {{no* yes}} Other HistoryThere {{are* are not}} cats in the home.She {{has* has not}} had childhood varicella disease or chicken pox vaccine in the past.Patient {{has has not*}} been the victim of rape or other sexual assault.Have you ever received a blood transfusion {{no* yes}}Will you approve a blood transfusion in case of an emergency {{no yes*}} [place]PQC Screening ToolDo you feel unsafe in your relationship with your partner of with anyone in your environment? {{no* YES}}Have you ever had difficulties in your life due to alcohol or drugs including prescription drugs? {{no* YES}}Does your partner, your friends or anyone else close to you have any problems with alcohol or drug use? {{no* YES}}Do either of your parents have a history of any problems with alcohol or drug use?{{no* YES}}Since your LMP have your used alcohol or drugs? {{no* YES}}Since your LMP have you smoked cigarettes, used tobacco products or vaped? {{no* YES}}(If the patient answers YES to any of the above questions, additional screening and/or counseling might be appropriate) Mental HealthDo you have a history depression or depression related illness {{no* yes}}Patient scored {{less than 10* greater than 10}} on the Pre- Questionnaire[place] [address] [place] [address], [place], [address], [facility] 01/18/2025 13:48:43 02/08/2025 text/html Patient presents for Routine OB visit. She is currently {{ 12 57#}} weeks gestation She {{is* is not}} taking vitamins. Denies vaginal bleeding or abdominal pain. She has not yet felt movement. IHSAN CORADO CNM [address] [facility] [address], [place], [address], [facility] 02/08/2025 16:30:26 OBGyn Episode Ob Episode Information Episode Created Date Number of Fetuses Patient Bloodtype Patient rh Status Prepregnancy Weight lbs Domestic Partner Domestic Partner Phone Father Name Salon Coordinator Status 01/17/20 25 1 O Positive OPEN Fetus Data First Name Last Name Admitted to NICU Weight (g) Sex Living Outcome Pediatric Complications Fetus ID Race Codes Race Delivery Type [id number] Problems Problem Notes Problem Name Start Date End Date Resolution Snomed Code Not e Maternal obesity complicating , childbirth and the puerperium, antepartum 964835120104 31.8, serial US and testing Past history of pre-eclampsia [id number] G3--IOL at 35 weeks for Severe PreE with severe range BPs. Generalized anxiety disorder [id number] On wellbutrin Fritz Calculation Initial Fritz Date Initial Exam Date Initial Exam Provider Initial Ultrasound Date Last Menstrual Period Date Ultra Sound Weeks Gestation 01/18/2025 01/04/2025 11/07/2024 7 Eighteen To Twenty Week Fritz Update Ultra Sound Date Fundal Height At Umbil Quickening Date Ultra Sound Latest Weeks Gestation Final Fritz Confirmed By Final Firtz Confirmed Date Final Fritz Date Ultra Sound Latest Days Gestation 0 [email or web address] 01/18/2025 025 0 Pre- Flowsheet Flowsheet Date 01/18/2025 Gramajo Score Blood Edema Fundus Height Fundus Units Glucose Ketones Leukocytes Nitrite Labor Signs Protein Cervic Dilation Cervic Effacement Cervic Station Type Weight in lbs Pre/Post Dialysis Refused [id number] BP Diastolic BP Location Tested BP Systolic BP Type 82 124 Fetus Heart Rate Present A ultrasound Present Fetus Movement Comments Pt is here for NOB visit-CJ Flowsheet Date 02/08/2025 Gramajo Score Blood Edema Fundus Height Fundus Units Glucose Ketones Leukocytes Nitrite Labor Signs Protein Cervic Dilation Cervic Effacement Cervic Station none trace Type Weight in lbs Pre/Post Dialysis Refused [id number] BP Diastolic BP Location Tested BP Systolic BP Type 68 128 Fetus Heart Rate Present A Present Fetus Movement A No Comments Rx/Hx reviewed. Pt here with significant other.mz Nausea and engergy improving. Discussed ASA. Precautions reviewed. Menstrual History Last Menstrual Date Menses Monthly On Bcp Conception Prior Menses Frequency Hcg Plus Date Menarche Onset Age 1211/07/2024 Genetic Screening And Infection History Question Response Note Mental Retardation/Autism false Patient's Age Will Be 35 Years Or Older At Estim ated Date of Delivery false Thalassemia (Macedonian, Burkinan, Mediterranean, Or Background): MCV < 80 false Neural Tube Defect (Meningomyelocele, Spina Bifi da, Or Anencephaly) false Congenital Heart Defect false Down Syndrome false Bandar-Sachs (eg, Mormon, Cajun, Sierra Leonean-Florence) f alse David Disease false Sickle Cell Disease Or Trait () false Hemophilia Or Other Blood Disorders false Muscular Dystrophy false Cystic Fibrosis false Savannah's Chorea false Intellectual Disability/Autism false If Yes, Was Person Tested For Fragile X? false Other Inherited Genetic Or Chromosomal Disorder false Maternal Metabolic Disorder (eg, Type 1 Diabetes , PKU) false Patient Or Baby's Father Had A Child With Defects Not Listed Above false Recurrent Loss, Or A Stillbirth false Medications (including Suppl ements, Vitamins, Herbs, OTC Drugs), Illicit/Recreational Drugs, Alcohol false If Yes, Agent(s) And Strength/Dosage false Any Other Genetic History false Live With Someone With TB Or Exposed To TB false Patient Or Partner Has History Of Genital Herpes false Rash Or Viral Illness Since Last Menstrual Perio d false History Of STD, Gonorrhea, Chlamydia, HPV, Syphi lis false Other Infection History false History of HIV false History of Hepatitis false Prior GBS-infected child false Hemoglobinopathy Or Carrier false Recent Travel History Outside of Country false Other Structural Defect false Delivery Information Delivery Date Delivery Type Labor Anesthesia Weeks Gestation Incision Type Labor Labor Length Hrs Delivered By Post Complications Tubal Sterilization Discharge Date Comments Discharge Information Feeding Method Contraceptive Method Maternal HG B and HCT Levels Ob Episode Information Episode Created Date Number of Fetuses Patient Bloodtype Patient rh Status Prepregnancy Weight lbs Domestic Partner Domestic Partner Phone Father Name Salon Coordinator Status 01/17/20 25 1 CLOSED Fetus Data First Name Last Name Admitted to NICU Weight (g) Sex Living Outcome Pediatric Complications Fetus ID Race Codes Race Delivery Type 2211.26 1 M Prematur e [id number] Vaginal Fritz Calculation Initial Fritz Date Initial Exam Date Initial Exam Provider Initial Ultrasound Date Last Menstrual Period Date Ultra Sound Weeks Gestation 0 Eighteen To Twenty Week Fritz Update Ultra Sound Date Fundal Height At Umbil Quickening Date Ultra Sound Latest Weeks Gestation Final Fritz Confirmed By Final Fritz Confirmed Date Final Fritz Date Ultra Sound Latest Days Gestation 0 0 Menstrual History Last Menstrual Date Menses Monthly On Bcp Conception Prior Menses Frequency Hcg Plus Date Menarche Onset Age Delivery Information Delivery Date Delivery Type Labor Anesthesia Weeks Gestation Incision Type Labor Labor Length Hrs Delivered By Post Complications Tubal Sterilization Discharge Date Comments 2 Gregorio Gracia - MLK delivered Discharge Information Feeding Method Contraceptive Method Maternal HG B and HCT Levels Ob Episode Information Episode Created Date Number of Fetuses Patient Bloodtype Patient rh Status Prepregnancy Weight lbs Domestic Partner Domestic Partner Phone Father Name Salon Coordinator Status 01/17/20 25 1 CLOSED Fetus Data First Name Last Name Admitted to NICU Weight (g) Sex Living Outcome Pediatric Complications Fetus ID Race Codes Race Delivery Type 3005.04 7 M Full Term [id number] Vaginal Fritz Calculation Initial Fritz Date Initial Exam Date Initial Exam Provider Initial Ultrasound Date Last Menstrual Period Date Ultra Sound Weeks Gestation 0 Eighteen To Twenty Week Fritz Update Ultra Sound Date Fundal Height At Umbil Quickening Date Ultra Sound Latest Weeks Gestation Final Fritz Confirmed By Final Fritz Confirmed Date Final Fritz Date Ultra Sound Latest Days Gestation 0 0 Menstrual History Last Menstrual Date Menses Monthly On Bcp Conception Prior Menses Frequency Hcg Plus Date Menarche Onset Age Delivery Information Delivery Date Delivery Type Labor Anesthesia Weeks Gestation Incision Type Labor Labor Length Hrs Delivered By Post Complications Tubal Sterilization Discharge Date Comments 3 Regional-Ep idural 39 [place] - delivered in [place] Discharge Information Feeding Method Contraceptive Method Maternal HG B and HCT Levels Ob Episode Information Episode Created Date Number of Fetuses Patient Bloodtype Patient rh Status Prepregnancy Weight lbs Domestic Partner Domestic Partner Phone Father Name Salon Coordinator Status 01/17/20 25 1 CLOSED Fetus Data First Name Last Name Admitted to NICU Weight (g) Sex Living Outcome Pediatric Complications Fetus ID Race Codes Race Delivery Type 3033.16 9704 F Full Term [id number] Vaginal Fritz Calculation Initial Fritz Date Initial Exam Date Initial Exam Provider Initial Ultrasound Date Last Menstrual Period Date Ultra Sound Weeks Gestation 0 Eighteen To Twenty Week Fritz Update Ultra Sound Date Fundal Height At Umbil Quickening Date Ultra Sound Latest Weeks Gestation Final Fritz Confirmed By Final Fritz Confirmed Date Final Fritz Date Ultra Sound Latest Days Gestation 0 0 Menstrual History Last Menstrual Date Menses Monthly On Bcp Conception Prior Menses Frequency Hcg Plus Date Menarche Onset Age Delivery Information Delivery Date Delivery Type Labor Anesthesia Weeks Gestation Incision Type Labor Labor Length Hrs Delivered By Post Complications Tubal Sterilization Discharge Date Comments 0 Regional-Ep idural 38 [place] - delivered at [place] Discharge Information Feeding Method Contraceptive Method Maternal HG B and HCT Levels
[2025-02-18 23:18] VITALS: BP 135/72; PULSE 81; RESP 16; O2SAT 100
== END 2025-02-18 23:24 | disposition home or self-care (01) ==
PROVIDERS: Emergency Provider Emergency Medicine; PCP Obstetrics & Gynecology
DX: O9A.212 Injury, poisoning and certain other consequences of external causes complicating pregnancy, second trimester (principal); T75.4XXA Electrocution, initial encounter; O09.92 Supervision of high risk pregnancy, unspecified, second trimester; R94.31 Abnormal electrocardiogram [ECG] [EKG]; Z3A.14 14 weeks gestation of pregnancy; W86.8XXA Exposure to other electric current, initial encounter
CPT/HCPCS: 93005; 99284

== ENCOUNTER 2025-07-29 23:33 | Outpatient (CLI) | payer OTHER, MEDICAID, SELFPAY ==
--- OUTSIDE RECORDS SUMMARY | 2024-12-21 04:30 | XMS_ITS | Continuity of Care Document ---
Author Organization [facility] Address [address] [place] [address] Phone Care Team Providers Care Digital Music Instructor Name Role Phone Sebas Fitzpatrick PT Unavailable Unavailable Procedures Procedure Date Therapeutic Activities Neuromuscular Re-Ed PT Evaluation Moderate Complexity Therapeutic Activities Neuromuscular Re-Ed Therapeutic Activities Neuromuscular Re-Ed Therapeutic Activities Neuromuscular Re-Ed Therapeutic Activities Neuromuscular Re-Ed Therapeutic Activities Neuromuscular Re-Ed Therapeutic Activities Neuromuscular Re-Ed Therapeutic Activities Neuromuscular Re-Ed Therapeutic Activities Neuromuscular Re-Ed PT Evaluation Low Complexity Therapeutic Activities Neuromuscular Re-Ed Advance Directives Directive Yes / No Effective Date File Name No Information Encounters Encounter Description Practice Location Reason(s) For Visit Diagnoses Date Provider Providers Copied on Encounter [address], [place], [place], [id number], tel:[phone] [facility] No Information Amari Mullen. . Referring Provider: Amparo Reina, [address], [place], [address]. tel:[phone] [address], [place], [place], [id number], [place] tel:[phone] [place] No Information Amari Sebas. . Referring Provider: Amparo Reina, [address], [place], [address]. tel:[phone] [facility], [address] [facility] [place], [place], [id number], [place] tel:[phone] [place] No Information Amari Sebas. . Referring Provider: Earlene Castanon, [address], [place], [address]. tel:[phone] [facility], [address] [facility], [place], [place], [id number], tel:[phone] [place] No Information Amari Sebas. . Referring Provider: Earlene Castanon, [address], [place], [address]. tel:[phone] [facility], [address], [place], [place], [id number], [place] tel:[phone] [place] No Information Amari Sebas. . Referring Provider: Earlene Castanon [address], [place], [address]. tel:[phone] [facility] [address] [facility] [place], [place], [id number], [place] tel:[phone] [place] No Information Amari Sebas. . Referring Provider: Earlene Castanon [address], [place], [address]. tel:[phone] [facility], [place], [place], [id number], [place] tel:[phone] [place] No Information Amari Sebas. . Referring Provider: Earlene Castanon [address], [place], [address]. tel:[phone] [address] [address], [place], [place], [id number], tel:[phone] [facility] No Information Amari So . Referring Provider: Earlene Castanon [address], [place], [address]. tel:[phone], [place], [place], [id number], tel:[phone] [facility] No Information Amari oS . Referring Provider: Earlene Castanon [address], [place], [address]. tel:[phone], [place], [place], [id number], tel:[phone] [facility] No Information Amari So . Referring Provider: Earlene Castanon [address], [place], [address]. tel:[phone] Family History Family Member Type Diagnosis Age At Onset No Information Payers Payer name Insurance type Covered alliance party ID Authormilli patrickcurtis(s) [facility] [id number] Social History Type Description Quantity Date Captured Comments Sex Female Smoking Status No Information Chief Complaint And Reason For Visit No Information Reason For Referral Reason For Referral No Information History Of Present Illness Encounter Date Complaint History Of Prese nt Illness No Information Functional Status Date Functional Assessmen t No Information Instructions Date Instruction Additional Infor mation No Information Assessments Type Assessment Date No Information Patient Care Teams Name Effective Dates (start - stop) Status Members No Information
--- OUTSIDE RECORDS SUMMARY | 2025-07-29 23:40 | XMS_ITS | Clinical Summary ---
Author Organization [facility] Address [address] [place] [address] Care Team Providers Care Necktie Operator Pockets And Pieces Name Role Phone Amparo Reina NP Primary Care Provider [phone] Allergies No known active allergies Medications buPROPion XL (WELLBUTRIN XL) 150 mg 24 hr tablet Take 1 tablet (150 mg total) by mouth every morning 90 tablet 4 07/12/20 24 Active labetaloL (NORMODYNE,TRANDAT E) 200 mg tablet [...] 11/13/2024 Assessment & Plan (11/13/2024 7:37 AM ADMISSION NURSE): Will start with x-ray of lumbar spine. Referral to physical therapy with added diagnosis of lumbar pain. Contusion of right thumb without damage to nail 11/13/2024 Assessment & Plan (11/13/2024 7:37 AM ADMISSION NURSE): X-ray right thumb Right wrist pain 07/14/2024 Assessment & Plan (07/14/2024 8:53 AM CDT): Will order x-ray. Referral to sports Medicine Chronic right shoulder pain 07/14/2024 Assessment & Plan (07/14/2024 8:53 AM CDT): Will order x-ray. Referral to sports Medicine Hypertension, essential 12/16/2023 Assessment & Plan (11/09/2024 4:23 PM ADMISSION NURSE): Blood pressure remains controlled on labetalol 200mg [...] another Assessment & Plan (12/16/2023 11:55 AM ADMISSION NURSE): Stable/ Improved. Blood pressure is adequately controlled on current medication. Will continue labetalol 200 mg b.i.d.. Blood pressure is well controlled on that so will continue. We will not make any medication changes today. Will have her follow-up in 6 months for continued monitoring and management Chronic left shoulder pain 12/16/2023 Assessment & Plan (12/16/2023 11:56 AM ADMISSION NURSE): Intermittent pain. Will refer to sports Medicine for evaluation H/O bilateral breast implants 12/16/2023 Assessment & Plan (12/16/2023 11:56 AM ADMISSION NURSE): Has been told she needs 10 year MRI. Will refer to plastics for evaluation. Class 1 obesity due to exces s calories with serious comorbidity and body mass index (BMI) of 31.0 to 31.9 in adult 12/16/2023 Assessment & Plan (11/13/2024 7:35 AM ADMISSION NURSE): We prescribed Phentermine continuation today. This medication [...] follow-up Assessment & Plan (12/16/2023 11:57 AM ADMISSION NURSE): Had some improvement with Contrave but then [...] it Assessment & Plan (11/09/2024 4:24 PM ADMISSION NURSE): Having aches and pains - sometimes has [...] daily Assessment & Plan (12/16/2023 11:58 AM ADMISSION NURSE): Stable. Doing well with Lexapro 10 mg [...] Referral from Dr. Valdovinos for LASIK surgery FOOD SAFETY MANAGER Good ocular health LASIK OU with femtosecond [...] concerns. LASIK OU Co-manage with Dr. Valdovinos [place] Goal OU Patient requested to have eyes [...] on file Legal Sex Female 9:59 AM ADMISSION NURSE Gender Identity Not on file Sexual Orientation Not on file Obstetrics History Last Filed Vital Signs Vital Sign Reading Time Taken Comments Blood Pressure 116/68 12/21/2024 2:21 PM ADMISSION NURSE Pulse 87 12/21/2024 2:21 PM ADMISSION NURSE Temperature 36.7 C (98.1 F) 12/21/2024 2:21 PM ADMISSION NURSE Respiratory Rate 24 12/21/2024 2:21 PM ADMISSION NURSE Oxygen Saturation 98% 12/21/2024 2:21 PM ADMISSION NURSE Inhaled Oxygen Concentration - - Weight 83.9 kg (185 lb) 11/12/2024 11:51 AM ADMISSION NURSE Height 165.1 cm (5' 5) 11/12/2024 11:51 AM ADMISSION NURSE Body Mass Index 30.79 11/12/2024 11:51 AM ADMISSION NURSE Plan of Treatment Health Maintenance Due Date Last Done Comments Cervical Cancer Screening 1991 Hepatitis C Screening 1991 Varicella Vaccines (1 of 2 - 13+ 2-dose series) 2004 Regular Well Visit/Exam 18-64 2009 HPV Vaccines (1 - 3-dose SCDM series) 2018 Influenza Vaccine (#1) 2025 4, 09/01/2023, 09/01/2023, Additional history exists Depression Screening 08/10/2025 08/10/2024, 12/14/19 24 DTaP/Tdap/Td Vaccine (7 - Td or Tdap) 08/26/2032 08/26/2022, 07/11/1996, 01/06/1993, Additional history exists Hepatitis B Screening Completed 09/06/2017 , 03/01/2001, 10/05/2000, Additional history exists Covid-19 Vaccine Completed 08/12/2024, 09/2023, 09/01/2022, Additional history exists Pneumococcal vaccine <65 Aged Out No longer eligible based on patient's age to complete this topic Insurance [employer] Address: [address] [place] [address] ANTHEM ACCESS CHOICE [employer] Address: [facility] [address] [place] [address] Care Teams Necktie Operator Pockets And Pieces Relationship Specialty Start Date End Date Amparo Reina NP [address] [place] [address] PCP - General Family Medicine 05/07/25
--- OUTSIDE RECORDS SUMMARY | 2025-07-29 23:40 | XMS_ITS | Encounter Summary ---
Author Organization [facility] Address [address] [place] [address] Care Team Providers Care Personal Security Specialist Name Role Phone Bettie Thrasher NP Primary Care Provider Unav ailable None, Provider Primary Care Provider Unavaila ble None, Provider Primary Care Provider Unavaila ble Nuvia Bates Primary Care Provider [phone] Amparo Reina [facility] Primary Care Provider [phone] Encounter Details Date Type Department Care Team (Late st Contact Info) Description 03/27/2021 Xeccedt Message Enc [facility] Medical Group Family & Internal Medicine [address] [address] Bettie Thrasher, RIO RE: Question [...] Sex Assigned at Female 12/26/2024 9:46 PM SENIOR QA AUTOMATION ENGINEER Legal Sex Female 8:58 PM CDT Gender [...] Rule Out 12/10/2021 12/10/2021 12/10/2021 11:47 AM SENIOR QA AUTOMATION ENGINEER COVID-19 Rule Out 10/25/2022 10/25/2022 10/25/2022 1:56 PM SENIOR QA AUTOMATION ENGINEER documented as of this encounter Care Teams Personal Security Specialist Relationship Specialty Start Date End Date Bettie Thrasher NP PCP - General NURSE PRACTITIONER 03/26/21 12/09/21 None, Provider, PCP - General 12/10/21 12/31/21 None, Provider, PCP - General 01/28/22 08/24/22 [place] [address] [place] [address] PCP - General PHYSICIAN RESIDENTIAL LEASING MANAGER 08/25/22 12/25/24 Amparo Reina FNP- [address] [place] [address] PCP - General NURSE PRACTITIONER 12/26/24 documented as of this encounter
--- OUTSIDE RECORDS SUMMARY | 2025-07-29 23:40 | XMS_ITS | Encounter Summary ---
Author Organization [facility] Address [facility] [place] [address] Care Team Providers Care Switching Clerk Name Role Phone Bettie Thrasher NP Primary Care Provider Unav ailable None, Provider Primary Care Provider Unavaila ble None, Provider Primary Care Provider Unavaila ble Nuvia Bates Primary Care Provider [phone] Amparo Reina [facility] Primary Care Provider [phone] Encounter Details Date Type Department Care Team (Late st Contact Info) Description 05/27/2021 [employer] Message Enc [facility] Medical Group Family & Internal Medicine [address] [address] Bettie Thrasher NP RE: Medication [...] Sex Assigned at Female 12/26/2024 9:46 PM TECHNICIAN TERMINAL AND REPEATER Legal Sex Female 8:58 PM CDT Gender [...] Rule Out 12/10/2021 12/10/2021 12/10/2021 11:47 AM TECHNICIAN TERMINAL AND REPEATER COVID-19 Rule Out 10/25/2022 10/25/2022 10/25/2022 1:56 PM TECHNICIAN TERMINAL AND REPEATER documented as of this encounter Care Teams Switching Clerk Relationship Specialty Start Date End Date Bettie Thrasher NP PCP - General NURSE PRACTITIONER 03/26/21 12/09/21 None, Provider, PCP - General 12/10/21 12/31/21 None, Provider, PCP - General 01/28/22 08/24/22 [place] [address] [place] [address] PCP - General PHYSICIAN UNDER CUTTING MACHINE OPERATOR 08/25/22 12/25/24 Amparo Reina FNP- [address] [place] [address] PCP - General NURSE PRACTITIONER 12/26/24 documented as of this encounter
--- OUTSIDE RECORDS SUMMARY | 2025-07-29 23:40 | XMS_ITS | Encounter Summary ---
Author Organization [facility] Address [address] [place] [address] Care Team Providers Care Histology Technician Name Role Phone Bettie Thrasher NP Primary Care Provider Unav ailable None, Provider Primary Care Provider Unavaila ble None, Provider Primary Care Provider Unavaila ble Nuvia Bates Primary Care Provider [phone] Amparo Reina [facility] Primary Care Provider [phone] Encounter Details Date Type Department Care Team (Late st Contact Info) Description 07/15/2021 [employer] Message Enc [facility] Medical Group Family & Internal Medicine [address] [address] Bettie Thrasher, RIO RE: Question [...] Sex Assigned at Female 12/26/2024 9:46 PM REACTOR SERVICE OPERATOR Legal Sex Female 8:58 PM CDT Gender [...] Rule Out 12/10/2021 12/10/2021 12/10/2021 11:47 AM REACTOR SERVICE OPERATOR COVID-19 Rule Out 10/25/2022 10/25/2022 10/25/2022 1:56 PM REACTOR SERVICE OPERATOR documented as of this encounter Care Teams Histology Technician Relationship Specialty Start Date End Date Bettie Thrasher NP PCP - General NURSE PRACTITIONER 03/26/21 12/09/21 None, Provider, PCP - General 12/10/21 12/31/21 None, Provider, PCP - General 01/28/22 08/24/22 [place] [address] [place] [address] PCP - General PHYSICIAN ROSS LIFT OPERATOR 08/25/22 12/25/24 Amparo Reina FNP- [address] [place] [address] PCP - General NURSE PRACTITIONER 12/26/24 documented as of this encounter
--- OUTSIDE RECORDS SUMMARY | 2025-07-29 23:40 | XMS_ITS | Encounter Summary ---
Author Organization [facility] Address [address] [place] [address] Care Team Providers Care Customer Service Correspondence Clerk Name Role Phone Bettie Thrasher NP Primary Care Provider Unav ailable None, Provider Primary Care Provider Unavaila ble None, Provider Primary Care Provider Unavaila ble Nuvia Bates Primary Care Provider [phone] Amparo Reina [facility] Primary Care Provider [phone] Encounter Details Date Type Department Care Team (Late st Contact Info) Description 06/08/2021 [employer] Message Enc [facility] Medical Group Family & Internal Medicine [address] [address] Bettie Thrasher, RIO RE: Question [...] Sex Assigned at Female 12/26/2024 9:46 PM PRINTING MACHINIST Legal Sex Female 8:58 PM CDT Gender [...] Rule Out 12/10/2021 12/10/2021 12/10/2021 11:47 AM PRINTING MACHINIST COVID-19 Rule Out 10/25/2022 10/25/2022 10/25/2022 1:56 PM PRINTING MACHINIST documented as of this encounter Care Teams Customer Service Correspondence Clerk Relationship Specialty Start Date End Date Bettie Thrasher NP PCP - General NURSE PRACTITIONER 03/26/21 12/09/21 None, Provider, PCP - General 12/10/21 12/31/21 None, Provider, PCP - General 01/28/22 08/24/22 [place] [address] [place] [address] PCP - General PHYSICIAN PRODUCT SAFETY AND STANDARDS ENGINEER 08/25/22 12/25/24 Amparo Reina FNP- [address] [place] [address] PCP - General NURSE PRACTITIONER 12/26/24 documented as of this encounter
--- OUTSIDE RECORDS SUMMARY | 2025-07-29 23:40 | XMS_ITS | Clinical Summary ---
Author Organization [facility] Address [facility] [place] [address] Care Team Providers Care Freezing Room Worker Name Role Phone Reina, Amparo En [facility] Primary Care Provider [phone] Allergies No known active allergies Medications escitalopram (LEXAPRO) 10 MG tablet Take 10 mg by mouth daily. Active labetalol (NORMODYNE) 200 MG tablet Take 200 mg by mouth 2 (two) times daily. Active Multiple Vitamin (MULTIVITAMIN ADULT) Tab Active Active Problems Problem Noted Date Diagnosed Date Preeclampsia (HHS/HCC) 08/25/2022 Comments Yes Immunizations Immunization Administration Dates Next Due Dtap 07/11/1996, 3,02/03/1992,1990,1991 Flucelvax 6 Months+ (Prefill ed Syringe) 08/04/2017 Hepatitis B (Generic: Adult) 09/06/2017 Hepatitis B Pediatric 03/01/2001,10/05/2000,01/2000 Hib 09/28/1992, 2,1991,1990 Influenza Adult (Generic) 07/27/2018 MMR 07/11/1996,09/28/1992 Opv 07/11/1996, 3,1991,1990 Family History Medical History Relation Comments Hyperlipidemia [...] week 08/25/2022 How often do you attend chur or sikh services? More than 4 times per year 08/25/2022 Do you belong to any clubs o r organizations such as tenriism groups, unions, fraternal or athletic groups, or [...] move on to questions 3-9 2 03/26/2021 [facility] - Occupational Stress [...] place to sleep or slept in a penitentiary (including now)? No 08/25/2022 Comments Yes Sex and Gender Information Value Date Recorded Sex Assigned at Female 12/26/2024 9:46 PM [employer] Legal Sex Female 8:58 PM CDT Gender Identity Not on file Sexual Orientation Not on file Last Filed Vital Signs Vital Sign Reading Time Taken Comments Blood Pressure 134/82 01/16/2025 2:02 AM SH[employer] FI[employer] Pulse 87 01/16/2025 2:02 AM [employer] Temperature 36.5 C (97.7 F) 01/16/2025 2:02 AM SHOT FIREMAN Respiratory Rate 18 01/16/2025 2:02 AM SHOT FIREMAN Oxygen Saturation 100% 01/16/2025 2:02 AM SHOT FIREMAN Inhaled Oxygen Concentration - - Weight 82.6 kg (182 lb 1.6 oz) 01/16/2025 2:02 A M [employer] Height 165.1 cm (5' 5) 01/16/2025 2:02 AM SHOT FIREMAN Body Mass Index 30.3 01/16/2025 2:02 AM SHOT FIREMAN Plan of Treatment Health Maintenance Due Date Last Done Comments Cervical Cancer Screening Pap Smear (Age 30 to 64) Every 3 Years 1991 Annual Physical 1994 Hepatitis C 2009 HPV Vaccines (1 - 3-dose SCDM series) 2018 Cervical Cancer Screening Pap with HPV Testing (Age 30 to 64) Every 5 Years 2021 Cervical Cancer Screening with HPV 2021 COVID-19 Vaccine ( season) 2025 DTaP, Tdap and Td Vaccines (7 - Td or Tdap) 08/26/2032 08/26/2022, 07/11/1996, 01/06/1993, Additional history exists RSV Immunization or 60+ Years (1 - 1-dose 75+ series) 2066 Hepatitis B Vaccines Completed 09/06/2017, 03/01/2001, 10/05/2000, Additional history exists Meningococcal B Vaccine Aged Out No l onger eligible based on patient's age to complete this topic Meningococcal Vaccine Aged Out No veronica richard eligible based on patient's age to complete this topic Pneumococcal Vaccine: Pediatrics (0 to 5 Years) and At-Risk Patients (6 to 49 Years) Aged Out No longer eligible based on patient's age to complete this topic RSV Immunizations Under 20 Months Aged Out No longer eligible based on patient's age to complete this topic Insurance [facility] Advance Directives * Full Code (Latest Code [...] 2:35 PM 05/31/2022 8:44 PM Care Teams Freezing Room Worker Relationship Specialty Start Date End Date Amparo Reina, [employer] [address] [place] [id number] PCP - General NURSE PRACTITIONER 12/26/24
[2025-07-30 00:04] VITALS: BP 135/83; PULSE 89
[2025-07-30 00:14] LABS: Hematocrit 33.6 % (37.0-47.0); Hemoglobin 11.0 g/dL (12.0-15.0); Immature Granulocyte Percent A 0.6 % (0-0.5); Lymphocytes Absolute Auto 1.02 K/mm3 (0.9-3.2); Mean Corpuscular HGB Conc 32.7 g/dl (32-36); Mean Corpuscular Hemoglobin 30.1 pg (26-34); Mean Corpuscular Volume 91.8 fl (80-100); Nucleated Red Blood Cells Absolute Auto 0.000 K/mm3 (0.0-0.012); Nucleated Red Blood Cells Perc 0.0 % (0.0-0.2); Platelet Count Result 170 k/mm3 (150-375); Red Blood Count 3.66 M/mm3 (4.2-5.4); White Blood Count 15.1 K/mm3 (4.5-10.0)
[2025-07-30 00:16] VITALS: BP 123/77; PULSE 89
[2025-07-30 00:21] LABS: Add Urine Microscopic? YES; Glucose Urine UA Negative (Negative); Leukocyte Esterase Ur 1+ LEU/UL (Negative); Nitrate Urine Negative (Negative); Non Pathogenic Casts 0-2; Specific Grav Ur 1.015 (1.001-1.035)
[2025-07-30 00:22] LABS: Appearance Urine Clear (Clear)
[2025-07-30 00:28] LABS: Alanine Aminotransferase 22 U/L (6-35); Albumin Level 3.5 g/dL (3.5-5.1); Alkaline Phosphatase 117 U/L (38-126); Anion Gap 6 mmol/L (4-12); Aspartate Amino Transferase 31 U/L (14-36); Bilirubin,Total 0.3 mg/dL (0.2-1.3); Blood Urea Nitrogen 8 mg/dL (7-17); Calcium 9.5 mg/dL (8.4-10.2); Carbon Dioxide 22 mmol/L (22-30); Chloride 105 mmol/L (98-107); Estimated Glomerular Filt Rate > 60; Glucose 89 mg/dL (65-110); Potassium 4.0 mmol/L (3.4-5.0); Sodium 133 mmol/L (137-145); Total Protein 6.5 g/dL (6.3-8.2); Uric Acid 4.7 mg/dL (2.5-7.5)
[2025-07-30 00:31] VITALS: BP 126/74; PULSE 88
[2025-07-30 00:47] LABS: Total Protein Urine Random 11 mg/dL; Ur Ttl Prot Creatinine Ratio 0.15 mg/mg (0-0.20)
== END 2025-07-30 01:20 | disposition home or self-care (01) ==
LOC: ANHOBOP 23:38 → ANHLDR 23:41
PROVIDERS: Obstetrics & Gynecology; Visit Provider Advanced Practice Midwife
DX: O13.9 Gestational [pregnancy-induced] hypertension without significant proteinuria, unspecified trimester (principal); Z3A.00 Weeks of gestation of pregnancy not specified
CPT/HCPCS: 36415; 80053; 81001; 82570; 84156; 84550; 85025; 87086; 99199

== ENCOUNTER 2025-08-06 03:49 | Inpatient (IN) | payer OTHER, SELFPAY ==
[2025-08-06] VITALS (20 sets, daily range): BP systolic 116–142; BP diastolic 59–83; PULSE 67–118; RESP 16–18; TEMP 36.5–37.3; O2SAT 96–100; BMI 33.5
[2025-08-06 04:29] LABS: Hematocrit 34.9 % (37.0-47.0); Hemoglobin 11.8 g/dL (12.0-15.0); Immature Granulocyte Percent A 0.9 % (0-0.5); Lymphocytes Absolute Auto 1.61 K/mm3 (0.9-3.2); Mean Corpuscular HGB Conc 33.8 g/dl (32-36); Mean Corpuscular Hemoglobin 30.3 pg (26-34); Mean Corpuscular Volume 89.5 fl (80-100); Nucleated Red Blood Cells Absolute Auto 0.000 K/mm3 (0.0-0.012); Nucleated Red Blood Cells Perc 0.0 % (0.0-0.2); Platelet Count Result 205 k/mm3 (150-375); Red Blood Count 3.90 M/mm3 (4.2-5.4); White Blood Count 16.0 K/mm3 (4.5-10.0)
[2025-08-06] MEDS: FAMOTIDINE 20 MG/2 ML VIAL (04:51)
[2025-08-06] MEDS: ONDANSETRON INJ 4 MG/2 ML VIAL IV PUSH (04:51)
[2025-08-06] MEDS: LACTATED RINGERS 1,000 ML 125 ML IV CONT (04:51)
[2025-08-06 05:20] LABS: Syphilis IgG/IgM Antibody Non-Reactive (Nonreactive)
[2025-08-06] MEDS: OXYTOCIN 30 UNITS/NS 500 ML 30 UNITS/500 ML BAG 999 UNITS IV CONT (05:45)
--- NOTE | 2025-08-06 05:52 | PM.OBPRVD ---
OB - Vaginal Delivery Note Procedure Delivery date: 08/06/25 Events: Chronic Hypertension Delivery augmentation: Rupture of Membranes Delivery monitor: External FHT and External Uterine Route of delivery: Episiotomy description: None Laceration Description: None Specimen: Yes Quantitative Blood Loss (ml): 75 Anesthesia type: None Disposition: Floor Complications: No immediate complications Baby Date of : 08/06/25 Time of : 05:41 Gestational Age by Date: 38 Infant gender: Female Weight (pounds): 6 Weight (ounces): 2 presentation: vertex position: Left Occiput Anterior Placenta delivery description: Expressed and Other Cord Vessel Description: 3 Vessels and True Knot score one minute: 7 score five minutes: 8
--- NOTE | 2025-08-06 06:11 | LDADM ---
This patient, Shira Freire, was admitted to Labor/Delivery/Recovery 105 on 08/06/25 at 03:49. Plans for labor, pain management and were discussed with patient. Patient/family oriented to hospital policies and general routines including ID bracelet, bed and alarms, visiting hours, pain management, procedures, bathroom and other care routines, personal items, smoking policy, room service/diet and guest tray routines, infant security routines, and visiting hours. Patient/Family are encouraged to report perceived risks to care and to ask questions if they do not understand what they are told or what they should do. See OBIX for further documentation.
[2025-08-06] MEDS: OXYTOCIN 30 UNITS/NS 500 ML 30 UNITS/500 ML BAG 125 UNITS IV CONT (06:17)
--- NOTE | 2025-08-06 06:35 | S_PTH ---
PATIENT: Shira Freire LOC: [facility] U#:[id number] AGE/SX: 35/F ROOM: 291 RE08/06/[address]: Pancho Isaac MD : 1990 BED: 00 DIS: 08/08/2025 SPEC #: [id number] RECD: 08/06/25 07:44 STATUS: LETICIA RELeatha #: [id number] ISAURA: 08/06/25 06:[address]: Dayna Gutierrez DEPT: [facility] Surgical RECD BY: Margaux Paul ENTERED: 08/06/25 07:44 SP TYPE: Surgical OTHR DR: Pancho Isaac MD UNKNOWN,DOCTOR Tissues: A - Placenta Procedures: Hematoxylin and Eosin Stain Gross and Microscopic Level 5
[2025-08-06 07:17] LABS: Hepatitis B Surface Antigen Negative (Negative)
[2025-08-06] MEDS: ACETAMINOPHEN 325 MG TABLET 650 MG PO (07:20)
--- NOTE | 2025-08-06 08:45 | PC.NURSE ---
Patient transferred to post room #291 via wheelchair. Support person present. Oriented to unit, room, information board, rooming in, admission packet and security measures. Patient verbalizes understanding.
[2025-08-06] MEDS: IBUPROFEN 600 MG TABLET PO (09:25)
--- NOTE | 2025-08-06 13:00 | PC.NURSE ---
Introductions were made, then consulted with patient to assess needs related to . Discussed with mother her?plans to feed?her and the?experience so far. Baby has been supplemented with formula twice due to low blood glucose. Resources provided for inpatient and outpatient services with the feeding sheet, mom/baby guide and name written on the communication board. Mother voiced understanding of information and will call if there is a request for assistance. Reported to the Primary RN.
[2025-08-07 04:35] LABS: Hematocrit 32.7 % (37.0-47.0); Hemoglobin 10.6 g/dL (12.0-15.0)
[2025-08-07 05:30] VITALS: BP 126/70; PULSE 89; RESP 16; TEMP 36.5; O2SAT 100; O2SAT 99
[2025-08-07 07:20] VITALS: BP 129/79; PULSE 80; RESP 18; TEMP 37.4; O2SAT 99
[2025-08-07] MEDS: IBUPROFEN 600 MG TABLET PO ×2 (09:39→19:32)
[2025-08-07] MEDS: MULTIVIT/MIN/PREN/FOL AC/IRON TABLET 1 TAB PO (09:40)
--- NOTE | 2025-08-07 10:49 | P.PNOB_ITS ---
OB - PN: Subj Subjective Date/time seen: 08/07/25 10:49 Patient comments: no complaints, pain well controlled, incisional pain, tolerating diet and flatus present OB - PN: Obj Data Labs 08/07/25 04:05 Labs: Laboratory Results - last 24 hr 08/07/25 04:05 Hgb 10.6 L Hct 32.7 L OB - PN A/P Plan day: 1 Plan: routine care Comments: No problems, routine care Time Spent With Patient Time: Total time spent is greater than 50% in coordination of care (as documented) at patient's floor/unit and/or counseling patient: Exam 2 Const: General: comfortable, no acute distress and alert Resp: Effort & Inspection: normal respiratory effort Auscultation: no crackles, no rales and no rhonchi Cardio: Rate: regular rate Heart sounds: no click, no murmurs and no rubs GI: Inspection: non-distended GI Palp: No Tenderness to palpation present (GI) Auscultation: normal bowel sounds Other: Incision - CDI Extrem: General: normal to inspection, no pedal edema and no calf tenderness
--- NOTE | 2025-08-07 12:30 | PC.NURSE ---
Patient requested a latch check. She had baby on the right breast in cross cradle hold. Baby appears shallow and mom says it is hurting a little. We broke the latch and mom was shown how to obtain an asymmetrical latch. We observed baby's mouth with a very wide angle, more areola above baby's nose than below, and letting the chin hit the breast first and bringing baby's mouth up and over the nipple. Baby continues suckling off and on while maintaining the latch. Mom is very responsive and dad is present and involved. Patient says that she has breast implants and has always had a milk supply that dries up at 3 months. She has good nipple sensation. She is pumping frequently and she is supported to continue pumping to give her the best possible milk supply. We looked at her wearable Motif pump and discussed setting and sizing. Patient will call out at the next pumping session for an assessment. Primary RN updated.
[2025-08-07 20:00] VITALS: BP 139/78; PULSE 78; RESP 20; TEMP 36.7; O2SAT 98
[2025-08-07 21:00] VITALS: PULSE 78
--- NOTE | 2025-08-08 07:24 | P.PNOB_ITS ---
OB - PN: Subj Subjective Date/time seen: 08/08/25 07:24 Interval history: pp day 2 doing well desires d/c home OB - PN: Obj Data Labs 08/07/25 04:05 OB - PN A/P Plan day: 2 Plan: routine care and discharge home Time Spent With Patient Time: Total time spent is greater than 50% in coordination of care (as documented) at patient's floor/unit and/or counseling patient: Review of Systems 2 Review of Systems: All systems reviewed & are unremarkable except as noted in HPI and below Exam 2 Const: General: cooperative, healthy appearing and comfortable Resp: Effort & Inspection: normal respiratory effort Cardio: Rate: regular rate Neuro: General: patient oriented x3
--- NOTE | 2025-08-08 07:26 | PM.OBDSVD ---
DS: Admitting Diagnosis Discharge Date 08/08/25 Admitting Diagnosis labor DS: Discharge Diagnosis Discharge Diagnosis (1) Vaginal delivery: Code(s): O80 - Encounter for full-term uncomplicated delivery Status: Acute OB - DS: Summary OB Procedures : None OB Procedures Intrapartum: Spontaneous Vag Delivery OB Procedures: : None Peripartum Data Laceration Description: None Episiotomy description: None Time Spent with Patient Time attestation: Total time spent providing and/or coordinating discharge services: DS: Data Data Completed and Pending Completed studies during hospitalization: Pending at discharge 08/06/25 06:35 Surgical [PTH] Routine Discharge Plan Discharge Attending physician on discharge: Pancho Isaac Consulting providers: Dayna Gutierrez Discharging Clinician: Dayna Gutierrez Patient Disposition: Home Activity: pelvic rest Diet: regular Patient Instructions: Antibiotic Form Patient Language: Albanian Stand Alone Forms: General Discharge Information Follow-up/Referrals: Dayna Gutierrez, CNM [Certified Nurse [employer], DRY CLEANING MACHINE OPERATOR HELPER] - 4 Weeks Discharge Medications: Continued labetalol 200 mg tablet 200 mg PO Q12H escitalopram oxalate [Lexapro] 10 mg tablet 10 mg PO DAILY PNV no.95-ferrous fumarate-FA [] 28 mg iron- 800 mcg tablet 1 tablet PO DAILY Discontinued aspirin [Adult Low Dose Aspirin] .Route Date of admission: 08/06/25 03:49 Primary Care Provider: UNKNOWN,DOCTOR Admitting Provider: Pancho Isaac Attending physician on admission: Pancho Isaac Condition: Stable
[2025-08-08 08:18] VITALS: BP 125/84; PULSE 87; RESP 14; TEMP 37.1; O2SAT 99
--- NOTE | 2025-08-08 08:54 | PC.NURSE ---
On 08/08/25, the student, Ashly Plascencia, provided care and completed [facility] documentation on this patient. I have reviewed the student's documentation and agree with the findings.
[2025-08-08] MEDS: MULTIVIT/MIN/PREN/FOL AC/IRON TABLET 1 TAB PO (08:59)
[2025-08-08] MEDS: IBUPROFEN 600 MG TABLET PO (08:59)
--- NOTE | 2025-08-08 10:33 | PC.NURSE ---
Consulted with mother concerning needs and she shared her ability to independently latch infant optimally without pain. Mother is feeding appropriately for growth of and understands stimulating to eat if needed. Infant has had appropriate feedings in the last 24 hours meets the outcomes for weight, output, blood sugar and jaundice at this time. Reinforced understanding of milk production, transition of milk, signs of adequate intake, transition of stool, prevention/relief of engorgement, plugged ducts, mastitis, responsive watching for feeding cues, the different methods of stimulating to breastfeed 1-3 hours after the start of the last feeding, community resources, and when to call a provider using the resource of the feeding sheet along with the mom and baby guide. Mother voiced understanding of the information shared, is confident to continue effectively her infant at home, when to call for assistance, denies any additional assistance or education at this time. Reported to the Primary RN.
--- NOTE | 2025-08-08 10:47 | PC.NURSE ---
Patient instructed on viewing the discharge video Mother & Baby Care, The First Two Weeks. Patient was given the opportunity and encouraged to ask questions. Patient verbalized understanding of information shared and has been given the mother/baby guide for home reference.
[2025-08-09 13:46] VITALS: BP 119/77; PULSE 89; RESP 18; TEMP 36.7; O2SAT 97
== END 2025-08-08 12:40 | disposition home or self-care (01) | DRG 806 ==
LOC: ANHLDR 04:08 → ANHOB2 09:21
PROVIDERS: Advanced Practice Midwife; Admitting Provider Obstetrics & Gynecology; Visit Provider Obstetrics & Gynecology
DX: O69.2XX0 Labor and delivery complicated by other cord entanglement, with compression, not applicable or unspecified (principal); O10.92 Unspecified pre-existing hypertension complicating childbirth; Z37.0 Single live birth; Z3A.38 38 weeks gestation of pregnancy
CPT/HCPCS: 36415; 85014; 85018; 85025; 86593; 86850; 86900; 86901; 87340; 88307; A9270; J2405; J2590; J7120